=== PATIENT | male | born 1960 | race Caucasian/White ===

== ENCOUNTER 2016-05-09 07:44 | Inpatient (IN) | payer SELFPAY ==
[2016-05-09] VITALS (54 sets, daily range): BP systolic 78–117; BP diastolic 48–88; BMI 21.2
[~2016-05-09] VITALS: Ht 170.2 cm; Wt 70.9 kg
--- NOTE | ~2016-05-09 | HEMODYNAMI ---
PATIENT:DELMA HODGSON MEDICAL RECORD: [id number] : 60 LOCATION:[facility] ADMISSION DATE: 05/09/16 Generatedon:05/09/201610:18 Patient name: DELMA HODGSON Patient #: [id number] SSN: D OB: 1960 Date of study: 05/09/2016 Page: Of Hemodynamic Procedure Report Patient Data Patient Demographics Procedure consent was obtained First Name: DELMA Gender: Male Last Name: REMA : 1960 Middle Initial: S Age: 56 year(s) Patient #: [id number] Race: Additional ID: [id number] Contact details [address]: [address] [place] [address] State: [place] City: [place] Zip code: [address] Past Medical History Allergies: No known allergies Admission Admission Data Admission Date: 05/09/2016 Admission Time: 7:44 Insurance Payor: Private health insurance Weight (lbs.): 135 Weight (kg.): 61.23 Medications upon Admission Medications Dosage Times Administered Last Remarks per Delivery Day Date and Time Aspirin Yes 05/09/2016 (any) 0:00 Lab Results Lab Result Date: 05/09/2016 Lab Result Time: 8:00 Biochemistry Name Units Result Min Max BUN mg/dl 7 --(*---)-- 7 18 Creatinine mg/dl 0.9 --(-*--)-- 0.6 1.3 CBC Name Units Result Min Max Hematocrit % 34.5 *-(----)-- 42 54 Hemoglobin g/dl 12.1 *-(----)-- 13.5 17.5 Procedure Procedure Types Cath Procedure Diagnostic Procedure Right Heart RHC and LHC w/Coronaries Intra-Aortic Balloon Pump Procedure Description Procedure Date Procedure Date: 05/09/2016 Procedure Start Time: 8:47 Procedure End Time: 9:48 Procedure Staff Name Function Liana Delgado RT Scrub Donovan June RN Patroller Louise Kwong RN Nurse Klever Soliman MD Performing Physician Zion Marcos RT Monitor Procedure Data Cath Procedure Contrast Material Contrast Material Type Amount (ml) Isovue 300 137 Entry Location Entry Primary Successful Side Size Upsize Upsize Entry Closure Succes sful Closure Location (Fr) 1 (Fr) 2 (Fr) Remarks Device Remarks Femoral Right 6 Fr 7 Fr artery Short Short Femoral Right 7 Fr vein Short Estimated blood loss: 10 ml Diagnostic catheters Device Type Used For End Catheter Placement Cordis 5Fr Pigtail Procedure Catheter (MP) Cordis 5Fr JL 4.0 Ventriculography Catheter (MP) Cordis 5Fr 3DRC Catheter Procedure (MP) Lalaciences 7Fr Procedure [place] Thermodilution jd Procedure Complications No complications Procedure Medications Medication Administration Route Dosage Oxygen NRB 15 l/min Heparin Bolus I.V. 5000 units Integrilin (Bolus I.V. 5.6 ml 2mg/ml) Dopamine I.V. drip 10 mcg/kg/min (400mg/250ml D5W) 0.9% NaCl I.V. bolus 500 ml Integrilin (Bolus I.C. 5.6 ml 2mg/ml) Fentanyl I.V. 25 mcg Heparin Bolus I.V. 5000 units Heparin Drip I.V. drip 1000 units/hr (09444dbroe/250 D5W) Lidocaine 2% added to field 20 Heparin Flush Bag added to field 2 bags (1000units/500ml NS) Heparin Flush Bag added to field 1 bags (1000units/500ml NS) Plavix P.O. 600 mg Mechanical Ventricular Support IABP: Inserted after PCI has begun Hemodynamics Rest HGB: 12.1 (g/dl) Heart Rate: 63 (bpm) Pressure Samples Time Site Value (mmHg) Purpose Heart Use Rate(bpm) 9:10 PA 66/29(41) Snapshot 92 9:10 RV 51/15,21 Snapshot 83 9:11 RA 22/19(18) Snapshot 83 Snapshots Pre Cath Intra NCS Post Cath Vital Signs Time Heart Resp SPO2 etCO2 [id number] NIBP Rhythm Pain Sedation Rate (ipm) (%) (mmHg) (mmHg) (mmHg) Status Level (bpm) 8:40:55 62 21 97 0 0 69/49(61) NSR 0 (11) 10(A) , No pain 8:44:58 70 20 100 0 0 49/37(47) NSR 0 (11) 10(A) , No pain 8:49:45 68 19 100 0 0 76/39(63) NSR 0 (11) 10(A) , No pain 8:53:45 68 23 100 0 0 72/53(67) NSR 0 (11) 10(A) , No pain 8:57:42 65 20 100 0 0 81/54(64) NSR 0 (11) 10(A) , No pain 9:01:46 74 19 100 0 0 80/52(66) NSR 0 (11) 10(A) , No pain 9:05:48 83 17 100 0 0 83/52(69) NSR 0 (11) 10(A) , No pain 9:09:49 82 19 100 0 0 89/53(66) NSR 0 (11) 10(A) , No pain 9:13:51 84 17 100 0 0 86/60(68) NSR 0 (11) 10(A) , No pain 9:17:53 84 17 100 0 0 87/56(69) NSR 0 () 10(A) , No pain 9:21:54 95 14 100 0 0 84/57(68) NSR 0 (11) 10(A) , No pain 9:25:56 86 16 100 0 0 89/63(75) NSR 0 (11) 10(A) , No pain 9:29:58 91 16 100 0 0 89/62(72) NSR 0 (11) 10(A) , No pain 9:34:57 100 17 100 0 0 Measuring NSR 0 (11) 10(A) , No pain 9:34:59 93 17 100 0 0 82/29(33) NSR 0 (11) 10(A) , No pain 9:39:02 83 16 100 0 0 78/49(71) NSR 0 (11) 10(A) , No pain 9:43:00 83 14 100 0 0 81/53(70) NSR 0 (11) 10(A) , No pain 9:47:47 98 20 100 0 0 71/45(65) NSR 0 (11) 10(A) , No pain 10:10:31 103 13 100 0 0 86/56(68) NSR 0 (11) 10(A) , No pain 10:14:31 105 18 91 0 0 84/71(80) NSR 0 (11) 10(A) , No pain Medications Time Medication Route Dose Verified Delivered Reason No bola Effectiveness by by 8:43:01 Lidocaine 2% added 20ml vial Klever Ernst for local to Jourdan Soliman MD anesthetic field 8:43:13 Heparin Flush added 2 bags Klever Klever used for Bag to Jourdan Soliman MD procedure (1000units/500ml field NS) 8:43:46 Oxygen NRB 15 l/min Klever Buffie used for Jourdan Kwong RN procedure 8:43:56 Heparin Bolus I.V. 5000 units Klever Gil for ve rified Jourdan Kwong RN anticoagulation with dr soliman 8:45:47 Integrilin I.V. 5.6 ml Klever Gil for (Bolus 2mg/ml) Jourdan Kwong RN antiplatelet therapy 8:49:13 Dopamine I.V. 10 Klever Buffie (400mg/250ml drip mcg/kg/min Jourdan Kwong RN D5W) 8:57:01 0.9% NaCl I.V. 500 ml Klever Gil Per physician bolus Jourdan Kwong RN 8:59:22 Integrilin I.C. 5.6 ml Klever Ernst for (Bolus 2mg/ml) Jourdan Soliman MD antiplatelet therapy 9:05:00 Fentanyl I.V. 25 mcg Klever Rodriguezie for sedation Jourdan Kwong RN 9:14:36 Heparin Bolus I.V. 5000 units Klever Rodriguezie for ve rified Jourdan Kwong RN anticoagulation second bolus with dr soliman 9:17:15 Heparin Drip I.V. 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 600 mg Klever Gil for Jourdan Kwong RN antiplatelet therapy Procedure Log Time Note 8:27:27 Diagnostic Cath Status : Emergency 8:27:48 Donovan June RN sent for patient. Start room use. 8:27:50 Time tracking: Regular hours 8:27:53 Plan of Care:Hemodynamics will remain stable., Cardiac rhythm will remain stable., Comfort level will be maintained., Respiratory function will remain adequate., Patient/ family verbilizes understanding of procedure., Procedure tolerated without complication., Recovers from procedure without complications.. 8:35:18 Patient received from ED to CCL 2 Alert and oriented. Tansferred to table in Supine position. 8:38:16 Warm blankets applied, and agatha hugger turned on for patient comfort. 8:38:21 Correct patient and procedure confirmed by team. 8:38:23 Signed procedure consent form obtained from patient. 8:38:25 ECG and BP/O2 sat monitors applied to patient. 8:39:46 Vital chart was started 8:41:26 Baseline sample Acquired. 8:41:30 Rhythm: sinus rhythm 8:41:38 H&P Date Dictated: 05/09/2016 Within 30 days and on chart.. 8:41:39 Pre-op teaching completed and patient verbalized understanding. 8:41:39 Pre-procedure instructions explained to patient. 8:41:41 Family in waiting room. 8:41:45 Patient NPO since Midnight. 8:42:02 Patient allergic to No known allergies 8:42:04 Is the patient allergic to Iodine/contrast media? No. 8:42:47 Is patient on blood thinner?No 8:42:50 Patient diabetic? No. 8:43:01 Lidocaine 2% 20ml vial added to field was given by Klever Soliman MD; for local anesthetic; 8:43:01 Previous problem with sedation/anesthesia? No ? 8:43:02 Snore? Yes 8:43:03 Deviated septum? No 8:43:03 Sleep apnea? No 8:43:04 Opens mouth fully? Yes 8:43:05 Sticks out tongue? Yes 8:43:07 Airway obstruction? No ? 8:43:08 Dentures? No ? 8:43:12 Pre procedure: right dorsailis pedis pulse 1+ Palpable, but thready & weak; easily obliterated 8:43:13 Heparin Flush Bag (1000units/500ml NS) 2 bags added to field was given by Klever Soliman MD; used for procedure; 8:43:14 Pre procedure: left dorsailis pedis pulse 1+ Palpable, but thready & weak; easily obliterated 8:43:46 Oxygen 15 l/min NRB was given by Louise Kwong RN; used for procedure; 8:43:56 Heparin Bolus 5000 units I.V. was given by Louise Kwong RN; for anticoagulation; verified with dr soliman 8:44:05 Patient pain scale 10/10 ?. 8:44:19 IV started by Donovan June RN inleft antecubital with a 18 gauge IV catheter with 0.9% NaCl at KVO. 8:45:09 Lab results completed and on chart. 8:45:15 Bilateral groins area was prepped with chlora-prep and draped in sterile fashion 8:45:16 Sharps counted by scrub and verified by R.N. 8:45:16 Alarms reviewed by R. NHeaven 8:45:17 --------ALL STOP TIME OUT------ 8:45:19 Final Timeout: patient, procedure, and site verified with staff and physician. All members of the team are in agreement. 8:45:20 Bilateral groins site verified by team. 8:45:25 Physical assessment completed. ASA score P 2 - A patient with mild systemic disease as per Klever Soliman MD. 8:45:31 Sedation plan: Local Anesthetic Lidocaine 8:45:36 Use device set Femoral Dx 8:45:40 Acist Hand Control opened to sterile field. 8:45:40 Acist Manifold opened to sterile field. 8:45:41 Acist Syringe opened to sterile field. 8:45:42 Cardinal Cath Pack opened to sterile field. 8:45:42 Bag Decanter opened to sterile field. 8:45:43 St Zaki 260cm J .035 wire opened to sterile field. 8:45:45 Tegaderm 4 x 4 opened to sterile field. 8:45:47 Integrilin (Bolus 2mg/ml) 5.6 ml I.V. was given by Louise Kwong RN; for antiplatelet therapy; 8:45:51 Junior Whisper J 300cm 0.014 guide wire opened to sterile field. 8:45:51 Terumo 6Fr [place] Sheath opened to sterile field. 8:47:19 Procedure started. 8:47:20 Full Disclosure recording started 8:47:51 Local anesthetic to right femoral artery with Lidocaine 2% by Klever Soliman MD.INITIAL ACCESS ONLY 8:47:59 A 6 Fr Short sheath was inserted into the Right Femoral artery 8:48:31 Cordis Infinity 5Fr Multipack catheter opened to sterile field. 8:48:38 A Cordis 5Fr Pigtail Catheter (MP) was advanced over the wire and used for Procedure. 8:49:13 Dopamine (400mg/250ml D5W) 10 mcg/kg/min I.V. drip was given by Louise Kwong RN; ; 8:49:24 LV gram done using HIGHTOWER 8:49:31 Injector settings: Ml/sec: 10, Volume: 20, 8:49:33 Zero performed for pressure channel P1 8:50:21 EF : 20 % 8:50:32 Catheter removed. 8:50:39 A Cordis 5Fr JL 4.0 Catheter (MP) was advanced over the wire and used for Ventriculography. 8:50:50 LCA angiography performed. 8:52:08 Catheter removed. 8:52:12 A Cordis 5Fr 3DRC Catheter (MP) was advanced over the wire and used for Procedure. 8:52:45 RCA angiography performed. 8:53:44 Catheter removed. 8:54:17 Terumo 7Fr [place] Sheath opened to sterile field. 8:56:20 Cordis 6FR XBLAD 4.0 guide catheter opened to sterile field. 8:56:35 6 Fr xblad 4 guide catheter was inserted over the wire 8:56:40 Guide Catheter removed. unable to cannulate vessel. 8:56:49 Cordis 6FR XBLAD 3.5 guide catheter opened to sterile field. 8:56:58 6 Fr xblad 3.5 guide catheter was inserted over the wire 8:57:01 0.9% NaCl 500 ml I.V. bolus was given by Louise Kwong RN; Per physician; 8:58:48 whisper wire advanced. 8:58:49 Wire advanced across lesion. 8:59:22 Integrilin (Bolus 2mg/ml) 5.6 ml I.C. was given by Klever Soliman MD; for antiplatelet therapy; 8:59:28 Inflation number: 1 A Payfirma Esmeralda 3.5 X 15 balloon was prepped and advanced across the Prox CX, then inflated to 7 CHRISTINE for 0:21 (min:sec). 9:00:32 Balloon removed over the wire. 9:00:50 Wire redirected to OM. 9:02:44 Wire advanced across lesion. 9:02:54 Inflation Number: 1 A Medtronic Integrity 3.0 X 12 stent was prepped and advanced across the 1st Ob Jamee. The stent was deployed at 17 CHRISTINE for 0:10 (min:sec). 9:03:02 Stent catheter was removed intact over wire. 9:04:47 Inflation Number: 2 A Medtronic Integrity 4.0 X 9 stent was prepped and advanced across the Prox CX. The stent was deployed at 13 CHRISTINE for 0:10 (min:sec). 9:05:00 Fentanyl 25 mcg I.V. was given by Louise Kwong RN; for sedation; 9::44 Stent catheter was removed intact over wire. 9:05:45 Wire removed. 9:05:47 Guide catheter removed. 9:06:23 Procedure type changed to Cath procedure, Diagnostic procedure, Right Heart, RHC and LHC w/Coronaries, Intra-Aortic Balloon Pump 9:07:01 A 7 Fr Short sheath was inserted into the Right Femoral vein 9:07:24 A oneforty 7Fr [place] Thermodilution jd was advanced over the wire and used for Procedure. 9:09:02 St Zaki 150cm J .025 wire opened to sterile field. 9:09:37 .025 wire advanced 9:11:30 [place]-Gagan removed. 9:13:40 Sheath upsized to a 7 Fr Short. 9:14:36 Heparin Bolus 5000 units I.V. was given by Louise Kwong RN; for anticoagulation; verified second bolus with dr soliman 9:17:15 Heparin Drip (07847bhfgu/250 D5W) 1000 units/hr I.V. drip was given by Louise Kwong RN; for anticoagulation; verified with dr soliman 9:24:55 Datascope IABP 34cm balloon catheter opened to sterile field. 9:25:42 34cc IABP inserted into the RFA . 9::44 Augmentation: 1:1 per physician. 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 9:33:49 Plavix 600 mg P.O. was given by Louise Kwong RN; for antiplatelet therapy; 9:34:30 Augmenter BP: 98 9:36:07 venous and arterial sheath sutured in place. 9:36:13 Procedure ended.(Physican Out) 9:37:03 Contrast amount:Isovue 300 137ml. 9:37:05 Sharps counted by scrub and verified by R.N. 9:37:42 2.0 Silk 685H opened to sterile field. 9:37:52 venous sheath was sutured in with 2.0 silk. 9:38:08 arterial sheath was sutured in with 2.0 silk. 9:38:11 Insertion/operative site no bleeding no hematoma. 9:38:26 Post-op/insertion site Right Femoral artery dressed using a 4 x 4 and Tegaderm. 9:38:35 Post right femoral artery:stable, clean and dry 9:38:37 Post Procedure Pulses reassessed and unchanged 9:38:40 Post-procedure physical assessment completed. ASA score P 2 - A patient with mild systemic disease as per Klever Soliman MD. 9:38:47 Post procedure rhythm: unchanged. 9:38:50 Estimated blood loss: 10 ml 9:38:51 Post procedure instruction explained to patient.Patient verbalizes understanding. 9:38:53 Patient needs reinforcement of post procedure teaching. 9:41:24 Procedure and supply charges have been captured, reviewed, submitted and are correct. 9:41:28 Procedure Complication : No complications 9:43:22 Patient Weight : 135 kg 9:43:24 Insurance Payor : Private health insurance 9:43:53 IABP : Inserted after PCI has begun 9:46:25 Lab Result : Hemoglobin 12.1 g/dl 9:46:25 Lab Result : Hematocrit 34.5 % 9:46:25 Lab Result : BUN 7 mg/dl 9:46:25 Lab Result : Creatinine 0.9 mg/dl 9:46:35 PCI Cath Status : Emergency 9:48:01 Vital chart was stopped 9:48:02 See physician's report for complete and final results. 9:48:10 Report given to ICU. 9:48:13 Patient transfered to ICU with Stretcher. 9:48:15 Full Disclosure recording stopped 9:48:15 Procedure ended. 9:48:47 End room use (Document Last) 10:09:25 Vital chart was started 10:18:16 Vital chart was stopped Intervention Summary Intervention Notes Time ActionType Lesion and Equipment Action# Pressure Duration Attributes Used 8:59:28 Inflate Prox CX [place] 1 7 00:21 balloon Sci Esmeralda 3.5 X 15 balloon 9:02:54 Place stent 1st Ob Jamee Medtronic 1 17 00:10 Integrity 3.0 X 12 stent 9:04:47 Place stent Prox CX Medtronic 2 13 00:10 Integrity 4.0 X 9 stent Device Usage Item Name Manufacture Quantity Catalog Number Hospital Part Current Minimal Lot# / Charge Number Stock Stock Serial# Code Acist Manifold Acist 1 08979 154951 959401 773682 5 [employer] THINK360 Acist Hand Acist 1 73759 385028 116509 132422 5 Control Medical Systems THINK360 Acist Syringe Acist 1 13267 191575 910438 764892 20 Medical Systems THINK360 Bag Decanter Microtek 1 2002S 310388 18783 420040 5 Medical Inc. Cardinal Cath Cardinal [address] 572550 53429 605[address] Zaki 260[address] St Zaki 1 452553 293522 493936 510011 30 J .035 wire Tegaderm 4 x 4 3M 1 1626W 209026 412047 551285 5 Terumo 6Fr Terumo 1 KYP226 722854 255703 592983 40 [place] Sheath Cordis Cardinal 1 IP8886 517792 74464 253553 30 Infinity 5Fr Health Multipack catheter Cordis 5Fr Cardinal 1 538923 5 Pigtail Health Catheter (MP) Cordis 5Fr JL Cardinal 1 162038 5 4.0 Catheter Health (MP) Cordis 5Fr Cardinal 1 419505 5 3DRC Catheter Health (MP) Terumo 7Fr Terumo 1 BEQ740 921496 261408 688133 5 [place] Sheath Cordis 6FR Cardinal 1 61023342 219149 628671 362427 3 XBLAD 4.0 Health guide catheter Cordis 6FR Cardinal 1 [id number] 199182 672544 534174 10 XBLAD 3.5 Health guide catheter [place] Sci St[place]ford 1 [id number] 338450 940163 208239 1 [id number] Esmeralda 3.5 X Scientific 15 balloon Medtronic Medtronic 1 [id number] 357894 642535 646487 1 [id number] Integrity 3.0 X 12 stent Medtronic Medtronic 1 [id number] 447263 212875 7988963 2 [id number] Integrity 4.0 X 9 stent Han [place] 1 [id number] 285867 00719 224228 3 Lifesciences Lifesciences 7Fr [place] Thermodilution jd St Zaki [address] St Zaki 1 112195 330287 625103 397049 2 J .025 wire Datascope IABP Datascope 1 7478-81-7497-01 951878 967157 715905 1 34cm balloon catheter High Pressure Merit 1 [id number] 602458 34986 153023 10 Extension Medical Tubing (Molina) 2.0 Silk 685H Ethicon 1 685H 937215 219505 5 Junior Whisper Junior 1 [id number] 833703 401602 897686 5 J 300cm 0.014 Vascular guide wire Signature Audit [place] Stage Time Signature Unsigned Intra-Procedure 05/09/2016 Zion Gaines Counts 9:49:40 AM RT(R) RT(R) 05/09/2016 10:09:20 AM Intra-Procedure 05/09/2016 Liana 10:18:28 AM Counts RT(R) Signatures Monitor : Zion Marcos RT Signature : Date : Time : [facility] [address] [place] [address]
[~2016-05-09 07:44] MED LIST: ASPIRIN325 MG PO; EFFIENT10 MG PO; MULTIPLE VITAMI1 TA1 PO; POTASSIUM99 M1 PO
[2016-05-09 08:15] LABS: BASOPHILS 1.1 % (0.0-2.0); EOSINOPHILS 0.3 % (0-7); HEMATOCRIT 34.5 % (42.0-54.0); HEMOGLOBIN 12.1 g/dL (13.5-17.5); IMMATURE GRANULOCYTES 1.5 % (0-5); LYMPHOCYTES 27.4 % (15-50); MCH 33.9 pg (26.0-34.0); MCHC 35.1 g/dL (31.0-37.0); MCV 96.6 fL (80.0-100.0); MONOCYTES 13.2 % (2-11); NEUTROPHILS 56.5 % (40-80); RBC 3.57 10x6/uL (4.20-6.10); RDW 15.6 % (11.5-14.5); WBC 7.4 10x3/uL (4.8-10.8)
[2016-05-09 08:16] LABS: PLATELET COUNT 122 10x3/uL (130-400)
[2016-05-09 08:28] LABS: ALBUMIN 3.4 g/dL (3.4-5.0); ALKALINE PHOSPHATASE 102 U/L (46-116); ALT (SGPT) 85 U/L (10-68); BILIRUBIN - TOTAL 1.09 mg/dL (0.2-1.3); CALC OSMOLALITY 278 mosm/kg (275-300); CALCIUM 8.3 mg/dL (8.5-10.1); CARBON DIOXIDE 23.9 mmol/L (21.0-32.0); CHLORIDE - SERUM 98 mmol/L (98-107); CREATININE - SERUM 0.9 mg/dL (0.6-1.3); GLUCOSE 130 mg/dL (74-106); PROTEIN - SERUM 8.3 g/dL (6.4-8.2); SODIUM 140 mmol/L (136-145); UREA NITROGEN 7 mg/dL (7-18); eGFR NON AFRICAN AMERICAN > 90 mL/min (90-120)
[2016-05-09 08:41] LABS: INR 1.12 (0.85-1.17); PROTIME 14.3 SECONDS (11.6-15.0)
[2016-05-09 08:42] LABS: APTT 36.1 SECONDS (22.8-39.4)
[2016-05-09 08:44] LABS: CHOL - HDL RATIO 1.4 ratio (2.3-4.9); CHOLESTEROL, TOTAL 160 mg/dL (0-200); CKMB 13.3 U/L (0.0-3.6); CREATINE KINASE 198 UL (21-232); HDL CHOLESTEROL 111 mg/dL (32-96); LDL CHOLESTEROL 35 mg/dL (0-100); LDL-HDL RATIO 0.3 ratio (1.5-3.5); TRIGLYCERIDE 72 mg/dL (30-200)
[2016-05-09 08:46] LABS: TROPONIN-I 1.011 ng/mL (0.000-0.060)
--- NOTE | 2016-05-09 10:25 | NUR ---
PT ARRIVED FROM DENTIST ON BED WITH DENTIST TEAM. IABP TO RIGHT GROIN ON 1:1. PT ON DOPAMINE GTT AT 10MCG/KG/MIN, HEPARIN AT 1000 UNITS/HR, AND NS AT 100CC/H. ORIENTED TO ROOM. CALL LIGHT WITHIN REACH.
--- NOTE | 2016-05-09 10:58 | NUR ---
PT VOMITING OVER SIDE OF BED RAIL. PT REPORTS THAT HE DRINKS APPROX 1/5TH OF VODKA DAILY. REPORTS THAT HE WAS DRINKING LAST NIGHT.
--- NOTE | 2016-05-09 13:30 | NUR ---
PT RESTLESS. REPOSITIONED IN BED FOR COMFORT. INSTRUCTED TO KEEP RIGHT LEG STRAIGHT. VOICES UNDERSTANDING AT THIS TIME.
--- NOTE | 2016-05-09 15:30 | NUR ---
PT KEEPS BENDING LEFT ARM AND IV PUMPS ALARMING OCCLUDED. SALINE LOCKED LEFT AC PIV AND STARTED 20G PIV X1 STICK TO LEFT FA. PT TOLERATED WELL. BANANA BAG AND HEPARIN SWITCHED TO THIS SITE.
--- NOTE | 2016-05-09 17:50 | NUR ---
PT OOZING BLOOD FROM TABARES CATH INSERTION SITE AND RIGHT GROIN IABP INSERTION SITE. PT CLEANED AND PLACED ON CLEAN PAD. HAD APPROX 50CC OF BLOOD NOTED. WILL CONTINUE TO MONITOR.
--- NOTE | 2016-05-09 18:27 | NUR ---
ABLE TO CONTACT PT'S DAUGHTER MESFIN ERWIN # [phone]. SHE LIVES IN [place]. UPDATED HER ON PT'S STATUS. SHE WAS ABLE TO SPEAK WITH HER FATHER OVER THE TELEPHONE.
--- NOTE | 2016-05-09 19:20 | NUR ---
REPORT REC'D AND CARE ASSUMED, REC'D PT RESTING EYES CLOSED ON 9LITER OXYMIZER, AWAKENS TO VERBAL STIMULI, ORIENTED X 3, RIGHT A/C PIV WITH DOPAMINE @ 5MCG/KG/MIN OR 11.4CC/HR LEFT A/C PIV SALINE LOCKED, LEFT FOREARM PIV WITH A BANANA BAG INFUSING @ 100CC/HR AND HEPARIN @ 700 UNITS/HR BOTH VIA MANNIFOLD, RIGHT GROIN IABP 1:1 EKG TRIGGER, SANGUINOUS DRAINAGE NOTED UNDERNEATH DRSG AT GROIN AND LOWER THIGH, DOES APPEAR TO BE EXTENDING, PT REMINDED TO KEEP RIGHT LEG STRAIGHT AND FLAT, PT VERBALIZES UNDERSTANDING, NO HEMATOMA NOTED AT THIS TIME, TABARES PATENT DRAINING CONCENTRATED URINE, BLOODY DRAINAGE NOTED AROUND MEATUS, SR UP X 2, 1:[address]
--- NOTE | 2016-05-09 19:40 | NUR ---
PT WANTING TO GET UP TO USE THE BATHROOM, STATES " I NEED TO DO NUMBER 2", PT PLACED ON BEDPAN, CALL LIGHT IN REACH.
--- NOTE | 2016-05-09 19:55 | NUR ---
PT REMOVED FROM BEDPAN, LIQUID BROWN STOOL NOTED, PARTIAL BATH AND LINEN CHANGE GIVEN, PT REPOSITIONED UP IN BED, PT REMINDED TO KEEP RIGHT LEG STRAIGHT, SIPS OF WATER PROVIDED ON REQUEST, PT DENIES FURTHER NEEDS.
--- NOTE | 2016-05-09 20:50 | NUR ---
PT COMPLAINS OF LEFT HIP PAIN, EVENING MEDS GIVEN AND MORPHINE 2MG GIVEN SLOW IVP FOR PAIN.
--- NOTE | 2016-05-09 22:15 | NUR ---
PT'S ROOMATE AT WAITING ROOM DOOR TO DROP OFF PT'S CELL PHONE, LYUBOV [employer] CELL PHONE REC'D AND PLACED WITH PT'S BELONGINGS
--- NOTE | 2016-05-09 23:05 | NUR ---
REASSESSMENT COMPLETED, IABP CONTINUES, DRSG TO RIGHT GROIN WITH NO FURTHER BLEEDING NOTED, ATTEMPTING TO WEAN DOPAMINE, SIPS OF WATER GIVEN.
[2016-05-10] VITALS (95 sets, daily range): BP systolic 73–125; BP diastolic 38–91; Ht 170.2 cm; Wt 70.9 kg
--- NOTE | 2016-05-10 01:05 | NUR ---
LAB AT FOR TIMED PTT DRAW, PT REQUESTING ANXIETY MEDICATION, VSS.
--- NOTE | 2016-05-10 01:30 | NUR ---
2MG ATIVAN GIVEN SLOW IVP FOR ANXIETY, PT REPOSITIONED ONTO LEFT SIDE SUPPORTED WITH PILLOW, WILL MONITOR CLOSELY FOR CHANGES.
--- NOTE | 2016-05-10 03:00 | NUR ---
PT RESTING EYES CLOSED, RESP EVEN AND UNLABORED, VSS.
--- NOTE | 2016-05-10 04:00 | NUR ---
LAB AT FOR AM LAB DRAW
[2016-05-10 05:22] LABS: BASOPHILS 0.2 % (0.0-2.0); EOSINOPHILS 0.5 % (0-7); IMMATURE GRANULOCYTES 0.9 % (0-5); LYMPHOCYTES 14.5 % (15-50); MCH 33.1 pg (26.0-34.0); MCHC 34.5 g/dL (31.0-37.0); MONOCYTES 13.3 % (2-11); NEUTROPHILS 70.6 % (40-80); PLATELET COUNT 95 10x3/uL (130-400); RBC 3.02 10x6/uL (4.20-6.10); RDW 15.4 % (11.5-14.5); WBC 5.9 10x3/uL (4.8-10.8)
[2016-05-10 05:42] LABS: ALBUMIN 2.7 g/dL (3.4-5.0); ALKALINE PHOSPHATASE 78 U/L (46-116); ALT (SGPT) 71 U/L (10-68); BILIRUBIN - TOTAL 1.47 mg/dL (0.2-1.3); CALCIUM 7.2 mg/dL (8.5-10.1); CARBON DIOXIDE 23.6 mmol/L (21.0-32.0); CHLORIDE - SERUM 101 mmol/L (98-107); GLUCOSE 88 mg/dL (74-106); MAGNESIUM - SERUM 1.2 mg/dL (1.8-2.4); PHOSPHOROUS 2.8 mg/dL (2.5-4.9); POTASSIUM - SERUM 3.4 mmol/L (3.5-5.1); SODIUM 139 mmol/L (136-145)
--- NOTE | 2016-05-10 05:45 | NUR ---
COMPLETE BATH AND LINEN CHANGE GIVEN, PT PROVIDED SUPPLIES TO BRUSH TEETH, PT ABLE TO DO ORAL CARE INDEPENDENTLY, REPOSITIONED UP IN BED FOR COMFORT, VSS.
[2016-05-10 05:55] LABS: CALC OSMOLALITY 275 mosm/kg (275-300); CREATININE - SERUM 0.6 mg/dL (0.6-1.3); UREA NITROGEN 9 mg/dL (7-18); eGFR NON AFRICAN AMERICAN > 90 mL/min (90-120)
[2016-05-10 06:09] LABS: PLATELET ESTIMATE DECREASED
--- NOTE | 2016-05-10 06:15 | NUR ---
PT AGITATED PULLING AT TELEMETRY, STATES " I NEED TO GET OUT OF HERE", EXPLAINED TO PT WHY HE MUST STAY, PT SOMEWHAT CALMER, SHAKING NOTED TO BILATERAL UPPER EXT'S, 2MG ATIVAN GIVEN SLOW IVP AT THIS TIME.
--- NOTE | 2016-05-10 08:40 | NUR ---
DR. AVALOS AT BEDSIDE. IABP CHANGED TO 1:2. PT TOLERATING WELL.
--- NOTE | 2016-05-10 09:20 | NUR ---
PT ON IABP 1:3 NOW.
--- NOTE | 2016-05-10 10:17 | NUR ---
PT VERY AGGITATED AND TREMAYNE AT LINES. WILL GIVE ATIVAN ORDERED. HR INC TO 144 SINUS TACH, RESP 34, O2 SAT 87%. WILL GET ABGs.
--- NOTE | 2016-05-10 10:55 | NUR ---
PT'S HR INC 153. PT VERY AGGITATED. PAGED DR. AVALOS.
--- NOTE | 2016-05-10 11:38 | NUR ---
GAVE LOPRESSOR IVP PER MD ORDERS. GAVE SLOWLY AND ONLY DOSED 6MG. PT BECAME HYPOTENSIVE. HR DID COME DOWN TO 104 SINUS TACH. WILL RESTART DOPAMINE AT 5MCG/KG/MIN TO KEEP SBP >90.
--- NOTE | 2016-05-10 13:20 | NUR ---
CALLED DR. AVALOS WITH SERUM H&H RESULTS. WANTS TO ONLY GIVE 1 UNIT PRBCs NOW. NOTIFIED BLOOD BANK. UNABLE TO EDIT ORDER, BUT MERARI REPORTS THAT SHE WILL UPDATE AND EDIT ORDER.
[2016-05-10 13:29] LABS: HEMATOCRIT 28.6 % (42.0-54.0); HEMOGLOBIN 9.7 g/dL (13.5-17.5)
[2016-05-10 14:24] LABS: CALCIUM 7.5 mg/dL (8.5-10.1); CARBON DIOXIDE 27.5 mmol/L (21.0-32.0); CHLORIDE - SERUM 100 mmol/L (98-107); SODIUM 138 mmol/L (136-145); UREA NITROGEN 11 mg/dL (7-18)
[2016-05-10 14:26] LABS: CALC OSMOLALITY 281 mosm/kg (275-300); CREATININE - SERUM 0.8 mg/dL (0.6-1.3); GLUCOSE 219 mg/dL (74-106); eGFR NON AFRICAN AMERICAN > 90 mL/min (90-120)
[2016-05-10 14:27] LABS: POTASSIUM - SERUM 4.1 mmol/L (3.5-5.1)
--- NOTE | 2016-05-10 14:41 | NUR ---
PT VERY RESTLESS AND PULLING AT LINES. GAVE ATIVAN ORDERED.
--- NOTE | 2016-05-10 15:25 | NUR ---
PT VERY RESTLESS. AGGITATED. SHORT OF BREATH. RESP 36-42. BREATH SOUNDS WITH AUDIBLE WHEEZING WHEN STANDING AT SIDE OF BED. DIONTE WITH RESP THERAPY AT BEDSIDE FOR ABGs.
--- NOTE | 2016-05-10 15:35 | NUR ---
DISCUSSED ABG RESULT WITH DR. AVALOS AND DR. RAMIREZ. BOTH REPORT THAT THEY ARE ON THERE WAY TO UNIT NOW. PT VERY RESTLESS AND AGGITATED. CYANOTIC IN FACE. DIPHORETIC AND PALE.
--- NOTE | 2016-05-10 15:50 | NUR ---
DR. AVALOS AND DR. RAMIREZ AT BEDSIDE. VERSED 5MG IV GIVEN. PT INTUBATED WITH 8.0. 22 CM AT THE LIP. ETT SECURED. OGT PLACED AND VERIFIED WITH AIR BOLUS. PLACED TO LIS. DR. AVALOS PLACED IABP BACK TO 1:1.
--- NOTE | 2016-05-10 17:15 | NUR ---
PT HAD COMPLETE BATH AND LINEN CHANGE. TABARES CARE GIVEN. PT TOLERATED WELL.
--- NOTE | 2016-05-10 17:28 | NUR ---
DR. AVALOS TO PUT IV LABETALOL ON HOLD SINCE PT IS SEDATED AND HR IS NOW AT 102. BP 90/70
--- NOTE | 2016-05-10 19:00 | NUR ---
1900: Caller requested patient information. No password. 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 Jamey verbalized understanding. Explained that I would provide contact info to Maria Esther pts daughter. Caller states he does not have Maria Esther's number. Did not provide that number, but again explained to caller that his contact info would be given to NOK. Verbalized understanding.
--- NOTE | 2016-05-10 20:00 | NUR ---
1999: Pt remains sedated on vent with RR 20X with SPO2 96%. Pt remains sedated with Diprivan gtt as per orders. Pt remains ST 105-120 bpm with SBP 110's at this time. No change in IVF/UOP. Dopamine remains at 10 mcg/kg/min. Right groin sheath remains intact with no s/s of swelling or oozing at this time, but visible dried blood seen at dressing. Mannifold connected to right venous sheath for IV access. Bilateral pedal pulses obtained via doppler. Both extrem cool to touch. Blevins remains to gravity with >30 cc/hr dark yellow UOP. All monitors remain intact and all alarms on.
--- NOTE | 2016-05-10 22:00 | NUR ---
2200: Pt HR and RR increased with turning. Pt HR 120's and RR 24-30x. Oral care done as well and sx completed with minimal clear sx returned. Pt returns to ST 105-110 and RR20 with withdrawl of stimulation.
--- NOTE | 2016-05-10 23:45 | NUR ---
2345: Pt SPO2 98% decreased FIO2 to 80% at this time.
[2016-05-11] VITALS (94 sets, daily range): BP systolic 81–124; BP diastolic 63–91
--- NOTE | 2016-05-11 00:30 | NUR ---
0030: Pt remains on vent with RR23x with SPO2 98%. No change in IVF/UOP at this time. Pt has increased HR and RR with minimal stimulation. Pt BP decreased with above. Pt remains on IABP with no changes in setting. Right groin as previously documented.
[2016-05-11 00:55] LABS: INR 1.17 (0.85-1.17); PROTIME 14.8 SECONDS (11.6-15.0)
[2016-05-11 00:57] LABS: APTT 101.3 SECONDS (22.8-39.4)
--- NOTE | 2016-05-11 02:00 | NUR ---
0200: Lab returned. Heparin decreased to 500 units/hr.
--- NOTE | 2016-05-11 04:25 | NUR ---
0425: Pt remains on Vent with MG32-32s increased respirations seen with stimulation. Pt has increased HR 120's with minimal stimulation as well. Pt remains on IABP without change. No change in IVF/UOP at this time. Right groin sheath unchanged. No s/s of bleeding, oozing, or swelling noted. Bilateral lower extrem distal pulses obtainable via doppler. Oral care done and pt repositioned with HOB 20 degrees at this time.
[2016-05-11 05:25] LABS: BASOPHILS 0 % (0.0-2.0); EOSINOPHILS 0 % (0-7); HEMATOCRIT 31.1 % (42.0-54.0); HEMOGLOBIN 10.5 g/dL (13.5-17.5); IMMATURE GRANULOCYTES 0.5 % (0-5); LYMPHOCYTES 5.4 % (15-50); MCH 32.1 pg (26.0-34.0); MCHC 33.8 g/dL (31.0-37.0); MCV 95.1 fL (80.0-100.0); MEAN PLATELET VOLUME 9.9 fL (7.4-10.4); MONOCYTES 7.5 % (2-11); NEUTROPHILS 86.6 % (40-80); PLATELET COUNT 77 10x3/uL (130-400); RBC 3.27 10x6/uL (4.20-6.10); RDW 17.7 % (11.5-14.5); WBC 5.7 10x3/uL (4.8-10.8)
[2016-05-11 05:51] LABS: INR 1.14 (0.85-1.17); PROTIME 14.4 SECONDS (11.6-15.0)
[2016-05-11 05:52] LABS: ALBUMIN 2.5 g/dL (3.4-5.0); ALKALINE PHOSPHATASE 65 U/L (46-116); ALT (SGPT) 55 U/L (10-68); CALCIUM 7.2 mg/dL (8.5-10.1); CARBON DIOXIDE 27.5 mmol/L (21.0-32.0); CHLORIDE - SERUM 99 mmol/L (98-107); CREATININE - SERUM 0.6 mg/dL (0.6-1.3); D-DIMER-QUANTITATIVE 0.84 ug/mLFEU (0.20-0.54); GLUCOSE 225 mg/dL (74-106); LDH 291 U/L (85-227); PHOSPHOROUS 2.3 mg/dL (2.5-4.9); POTASSIUM - SERUM 3.7 mmol/L (3.5-5.1); PRO BNP 7117 pg/mL (0-125); PROTEIN - SERUM 6.8 g/dL (6.4-8.2); SODIUM 135 mmol/L (136-145); eGFR NON AFRICAN AMERICAN > 90 mL/min (90-120)
[2016-05-11 05:54] LABS: CALC OSMOLALITY 274 mosm/kg (275-300); UREA NITROGEN 7 mg/dL (7-18)
[2016-05-11 05:56] LABS: APTT 70.5 SECONDS (22.8-39.4)
[2016-05-11 06:14] LABS: PLATELET ESTIMATE DECREASED; PLATELET MORPHOLOGY NORMAL PLT MORPH
--- NOTE | 2016-05-11 08:11 | NUR ---
0715-RECIEVED PER FLOW SHEET-NOTED ST 132 ON MONITOR-NIBP 96-DIPRIVAN INCREASED TO 75MCG-POSS DT UNDER SEDATION-DOPAMINE TITRATED DOWN TO 9.8MCG/KG/MIN-GOAL AT THIS TIME TITRATION TO 9.5 [id number] DECREASED TO 70-90 SR -NIBP INCREASED TO 117/79-ATROPINE ON STANDBY IN RM AND SCANNED-KBRN
--- NOTE | 2016-05-11 08:34 | NUR ---
DR MONTOYA AT BEDSIDE-STATUS REVIEWED-VENT CHANGE BY DR RAMIREZ-VENT CHANGE TO 70% AND BICARB GTT D/C'D
--- NOTE | 2016-05-11 08:47 | NUR ---
NOTED NIBP 120/79-AUGMENTED 116-GOAL DOPAMINE TO 9MCG-TITRATED TO 9.2-HR 100-ST
--- NOTE | 2016-05-11 09:09 | NUR ---
NIBP-107/31-[id number]-584-HR 86-DOP AT 9MCG/KG/MIN
--- NOTE | 2016-05-11 10:04 | NUR ---
VENT CHANGE BY RT TO 60-DOPAMINE LEFT AT 9.0MCG-NIBP 111/62-DCH-467-MORPHINE 2MG IVP GIVEN OVER 10 MIN FOR POSSIBLE PAIN AND INCREASE MYOCARDIAL O2 PERFUSION
--- NOTE | 2016-05-11 11:11 | NUR ---
PATIENT HAS BEEN CONFUSED AND UNABLE TO BE INTERVIEWED SINCE HIS ADMISSION. PATIENT IS NOW ON THE VENT AND SEDATED. I HAVE NOT SEEN ANY FAMILY HER TO INTERVIEW AT THIS TIME. CM TO FOLLOW.
--- NOTE | 2016-05-11 11:43 | NUR ---
ECHO COMPLETED-REPOSITIONED TO SUPINE-GOAL DOPAMINE A 8MCG-TITRATED TO 8.50 NIPB -NOV 119-HR 92
--- NOTE | 2016-05-11 12:29 | NUR ---
DR AVALOS AT [facility]-IABP DECREASED TO 1:3-VERBAL DIRECTION IF GTT IN NIBP AND HR >125-TO RETURN TO 1:1 AND REVALUATE
[2016-05-11 12:30] LABS: INR 1.04 (0.85-1.17); PROTIME 13.5 SECONDS (11.6-15.0)
[2016-05-11 12:35] LABS: APTT 48.7 SECONDS (22.8-39.4)
--- NOTE | 2016-05-11 13:49 | NUR ---
REPOSITIONED TO R SIDE-DOPAMINE AT 8MCG-IABP 1;3-NIBP 97/78 AUGMENTED 123
--- NOTE | 2016-05-11 14:37 | NUR ---
IABP 1;3-NIBP 102/81-AUGMENTED 123-HR 97--GOAL TO TITRATED DOPAMINE TO 7MCG-AT 7.75MCG AND TOLERATING
--- NOTE | 2016-05-11 15:33 | NUR ---
PT TRIGGERING VENT WITH HIGH PEAK PRESSURES-SUCTIONED FOR SMALL AMOUNT -ORAL CARE DONE-HR 142-DIPRIVAN BOLUS 15MG GIVEN TO <ST TO 100
--- NOTE | 2016-05-11 16:40 | OP ---
PATIENT NAME: DELMA HODGSON MEDICAL RECORD: [id number] :60 LOCATION:D.[facility] [place] D.2305 ADMISSION DATE:05/09/16 SURGEON: KWAN AVALOS MD DATE OF OPERATION: 05/09/2016 PROCEDURES: 1. Intraaortic balloon pump placement. 2. Percutaneous transluminal coronary angioplasty stent left circumflex. 3. Percutaneous transluminal coronary angioplasty stent first obtuse marginal. 4. Left heart catheterization. 5. Right heart catheterization. 6. Left ventriculogram. INDICATION: Cardiogenic shock, myocardial infarction, and possible pulmonary embolus. PROCEDURE IN DETAIL: After informed consent was obtained and after a detailed explanation of the risks, benefits, as well as alternative therapies, the patient elected to proceed with angiogram and angioplasty. Right femoral artery and vein were cannulated via modified Seldinger technique with the placement of 6 and 7-Nepali sheath. All catheters exchanged through this sheath. At the end of the case, intraaortic balloon pump was placed in the descending aorta. An intraaortic balloon pump counterpulsation was undertaken. FINDINGS: 1. Left ventriculogram was performed in standard 30-degree HIGHTOWER view, reveals severe global hypokinesis throughout all segments. Overall ejection fraction in the 20% range. 2. Right heart hemodynamics. Pulmonary artery pressure 80/36, right ventricular pressure 54/30, and right atrial pressure mean of 19. SELECTIVE CORONARY ANGIOGRAPHY: 1. Left main showed no significant angiographic disease. 2. Left anterior descending has moderate irregularities. There is an area in the mid vessel, most likely is 50-70%. This does not appear to be critical. 3. Left circumflex ostium appears to have acute thrombus. The first obtuse marginal was 80% to 90% stenosis. PTCA STENT OF THE LEFT CIRCUMFLEX AND FIRST OBTUSE MARGINAL: The circumflex itself was addressed with a 4.0 x 9 Integrity. The obtuse marginal with 3.0 x 12 Integrity. Result was 0% residual throughout. No further evidence of thrombus. No further stenosis. OVERALL IMPRESSION: Successful percutaneous transluminal coronary angioplasty stent of the circumflex and first obtuse marginal; however, with the extremely elevated pulmonary pressures, this as well suggests possible pulmonary embolus, intraaortic balloon pump was placed due to low ejection fraction and continued low blood pressure. Heparin drip was instituted afterwards. We will perform a VQ or CTA in near future for further diagnostic evaluation of pulmonary embolus. TRANSINT:[id number] Voice Confirmation ID: [id number] DOCUMENT ID: [id number] OPERATIVE REPORT [id number] DELMA HODGSON JEFFREY MD at 1640 CC: [id number] DICTATION DATE: 05/09/16922 OPERATIONS RESEARCH GROUP MANAGER: 05/09/16 0953 ADM IN [address] [id number] [place] [address]
--- NOTE | 2016-05-11 16:40 | PN ---
PATIENT:DELMA HODGSON MEDICAL RECORD: [id number] LOCATION:D.[facility] D.230 ADMISSION DATE: 05/09/16 PROGRESS NOTE DATE OF SERVICE: 05/10/2016 Mr. Hodgson presented yesterday with what appeared to be cardiogenic shock. He underwent a PTCA stent of his left circumflex, along with intraaortic balloon pump placement. His ejection fraction was in the 25% to 30% range. He was weaned off the pressors overnight. This morning, he was doing well. We turned the intra-aortic balloon pump down to 1:3. He did well initially with this; however, now his respiratory status has markedly decreased. We put the balloon pump back to 1:1. His blood pressure is holding; however, he had to be put back on the dopamine. At this time, he is in respiratory distress and intubation is underway. This is a poor prognosis from a cardiac standpoint, from a respiratory standpoint half-way. His hemoglobin did drop down to 9.7. We are transfusing with 1 unit of blood for this. He is yet to get the transfusion. Further care depends upon the results with intubation. TRANSINT:[id number] Voice Confirmation ID: [id number] DOCUMENT ID: [id number] KWAN AVALOS MD at 1640 CC: [id number] DICTATION DATE: 05/10/16 1542 MANAGER BUSINESS PLANNING: 05/10/16 1557 ADM IN [facility] [address] [place] [address]
--- NOTE | 2016-05-11 16:40 | HP ---
PATIENT: DELMA HODGSON MEDICAL RECORD: [id number] ACCOUNT: [id number] LOCATION:[facility] D.2305 : 60 ADMISSION DATE: 05/09/16 HISTORY AND PHYSICAL EXAMINATION ADMITTING DIAGNOSES: 1. Acute coronary syndrome. 2. Coronary artery disease. 3. Previous percutaneous transluminal coronary angioplasty stent. 4. Chronic obstructive pulmonary disease. 5. Smoking history. HISTORY OF PRESENT ILLNESS: Mr. Hodgson presents with chest pain. The chest pain actually started last night at 11:00. He became pain free. He went to sleep. He woke up by acute severe chest pain, presented to the Emergency Room with heart rate in the 140s. He was given IV Lopressor and Cardizem. He converted to sinus rhythm. He continues to have 10/10 chest pain. PHYSICAL EXAMINATION: GENERAL APPEARANCE: Well-nourished, well-developed, appears stated age. Level of distress, comfortable. PSYCHIATRIC: Mental status, alert, normal affect. Orientation, oriented to time, place and person. EYES: Lids and conjunctiva, noninjected. No discharge, no pallor. ENT: Lips, teeth, gums, normal dentition. Oropharynx, no cyanosis, no pallor. NECK: Carotid arteries, bilateral normal upstroke, no bruits, no thrills. JUGULAR VEINS: No jugular venous pressure or distention. CERVICAL LYMPH NODES: Nontender, nonenlarged. THYROID: Not enlarged. Nontender. No nodules. LUNGS: Respiratory effort, unlabored. CHEST: Normal curvature. No thoracic deformity. No chest wall tenderness. Percussion, resonant. Auscultation, clear. No wheezes, no rales, no rhonchi. CARDIOVASCULAR: Precordial exam, nondisplaced. No heaves or pericardial thrills. Rate and rhythm, regular. Heart sounds, normal S1, normal S2. No S3, no gallop, no rub. Systolic murmur, not heard. Diastolic murmur, not heard. EXTREMITIES: No cyanosis, no edema. Peripheral pulses, full and equal in all extremities, except as noted. No bruits appreciated. ABDOMEN: Soft, nondistended. Normal aorta. No bruit. Nontender. No masses. Liver, nontender, no hepatomegaly. Spleen, nontender, no splenomegaly. MUSCULOSKELETAL: No joint tenderness. No joint swelling. No erythema. NEUROLOGICAL: Normal gait, normal strength, normal tone. SKIN: Warm and dry. REVIEW OF SYSTEMS: The patient reports easy bruising but reports no swollen glands. The patient reports no fever, no night sweats, no significant weight gain, no significant weight loss. No significant exercise tolerance. The patient reports no dry eyes, no irritation, no vision change. Patient reports no difficulty hearing and no ear pain. Patient reports no frequent nose bleeds or nose and sinus problems. Patient reports on arm pain on exertion. No shortness of breath while lying down. No history of heart murmur. Patient reports no cough, no wheezing or coughing up blood. Patient reports no abdominal pain, no vomiting. Normal appetite. No diarrhea and not vomiting blood. No nausea and no constipation. Patient reports no incontinence. No difficulty urinating. No hematuria. No increased frequency. Patient reports no muscle aches. No weakness, no arthralgias, no back pain. No swelling of the HISTORY AND PHYSICAL [id number] REMADELMA S extremities. Patient reports no abnormal mole, no jaundice, no rashes. Reports no loss of consciousness. No weakness and no numbness. No seizures, dizziness, or headaches. The patient reports no depression, no sleep disturbance, feeling safe in a relationship and no alcohol abuse. Patient reports on fatigue. Reports no runny nose or sinus pressure. No itching, no hives, and no frequent sneezing. OVERALL IMPRESSION: Acute coronary syndrome, most likely he has recurrent hemodynamically significant coronary artery disease. At this time, he is with a pressure of 70. Most likely this is cardiogenic shock from the acute event. We will proceed with coronary angiography. We will give heparin and Integrilin at this time, start him on pressors if need be. His rhythm has stabilized. Further care depends on findings at cardiac catheterization. TRANSINT:[id number] Voice Confirmation ID: [id number] DOCUMENT ID: [id number] KWAN AVALOS MD at 1640 CC: [id number] DICTATION DATE: 05/09/16 0844 LIPCOAT SPRAYER: 05/09/16 0918 ADM IN [id number] [place] [address]
--- NOTE | 2016-05-11 19:45 | NUR ---
1944: Pt remains on vent with RR20X with SPO2 98%. Diprivan titrate for sedation as per orders. Pt SR 90's on CM. IABP 1:3 attached and transduced with augmentation via right groin sheath. Dopamine remains infusing at 7.5 mcg/kg/min at this time. ABD soft tender to palpation. OGT position confirmed with 30 cc air bolus and auscultation. Pt grimaces with movement and has occasional coughing. HR and RR increased with both. Pt does not follow commands, but does move x4 extrem weakly vs gravity. Blevins to gravity with >3 cc/hr dark yellow UOP. Blevins care, SCD care, and Oral care done at this time. Pt remains 1:1 NSG. All monitors are on with alarms intact/set.
--- NOTE | 2016-05-11 22:15 | NUR ---
2215: Attempted to wean dopamine to 5 mcg/kg/min. Pt BP decreased to 70's systolic with augmented BP 80-90's. Dopamine returned to 7.5 mcg/kg/min.
[2016-05-12] VITALS (92 sets, daily range): BP systolic 79–116; BP diastolic 62–90
--- NOTE | 2016-05-12 01:15 | NUR ---
0115: Pt bath and linen change done at this time. Pt HR increased 110-120bpm and pt SBP decreased 70's per NIBP. Pt returned to SR 90's with SBP 90's with removal of stimulation.
[2016-05-12 04:47] LABS: BASOPHILS 0 % (0.0-2.0); EOSINOPHILS 0 % (0-7); HEMATOCRIT 32.2 % (42.0-54.0); IMMATURE GRANULOCYTES 0.8 % (0-5); LYMPHOCYTES 5.6 % (15-50); MCH 32.6 pg (26.0-34.0); MCHC 34.2 g/dL (31.0-37.0); MCV 95.5 fL (80.0-100.0); MEAN PLATELET VOLUME 10.6 fL (7.4-10.4); NEUTROPHILS 83.6 % (40-80); PLATELET COUNT 92 10x3/uL (130-400); RBC 3.37 10x6/uL (4.20-6.10); RDW 17.7 % (11.5-14.5); WBC 7.1 10x3/uL (4.8-10.8)
[2016-05-12 05:01] LABS: ALBUMIN 2.4 g/dL (3.4-5.0); ALKALINE PHOSPHATASE 67 U/L (46-116); ALT (SGPT) 47 U/L (10-68); BILIRUBIN - TOTAL 1.54 mg/dL (0.2-1.3); CALCIUM 7.7 mg/dL (8.5-10.1); CARBON DIOXIDE 29.9 mmol/L (21.0-32.0); CHLORIDE - SERUM 102 mmol/L (98-107); CREATININE - SERUM 0.5 mg/dL (0.6-1.3); MAGNESIUM - SERUM 1.7 mg/dL (1.8-2.4); POTASSIUM - SERUM 3.4 mmol/L (3.5-5.1); SODIUM 139 mmol/L (136-145); UREA NITROGEN 6 mg/dL (7-18); eGFR NON AFRICAN AMERICAN > 90 mL/min (90-120)
[2016-05-12 05:12] LABS: CALC OSMOLALITY 279 mosm/kg (275-300); GLUCOSE 168 mg/dL (74-106); PHOSPHOROUS 1.5 mg/dL (2.5-4.9)
--- NOTE | 2016-05-12 06:00 | NUR ---
0600: AM labs returned. Electrolyte protocol used. Pt remains on Vent with RR 20x with SPO2 99%. Pt remains SR 90's with SBP 90-100. Dopamine continues at 7.5 mcg/kg/min. No change in other IVF/UOP at this time. Right groin site w/o s/s of bleeding, oozing, or swelling and RLE pulses obtained via doppler.
--- NOTE | 2016-05-12 07:35 | NUR ---
RECIEVED PER FLOW SHEET-FEMSTOP PLACED IN PREP FOR IABP REMOVAL-HEPARIN GTT TURNED OFF-PHARMACY NOTIFIED OF NEED FOR PHOS ELECTROLYTE REPLACEMENT
--- NOTE | 2016-05-12 09:35 | NUR ---
0850-DR JAMA CALLED UNIT-PLAN IABP D/C--PT CURRENT LIBBY 8-7-QESOVOHM AT 75 MCG-ATIVAN 2MG IVP GIVEN- 0900-CONTINUES TO ATTEMPT SITTING UP -IV ACCESSES CONFIRMED PATENT-ADDITIONAL MORPHINE 2MG IVP GIVEN FOR PAIN SCALE OF 1-2-UNKNOWN 0912-KICKING IABP LEG-DIPRIVAN BOLUS 10MG GIVEN IN ATTEMPT FOR LIBBY 1-2-AND PREP FOR REMOVAL OF IABP-NIBP 107/74-NOV 116-HR 94 0915-CONTINUES BITING ET TUBE AND COUGHING AGAINST-PEAK PRESSURE 60-ZOFRAN 4MG IV GIVEN FOR POSSIBLE SEVERE NAUSEA-'GAG'-DIPRIVAN 10MG BOLUS GIVEN -STRONG ATTEMPT TO REACH LIBBY 1-2-FEMSTOP PLACED-PT MOVING ALL EXTREMITIES-DOES NOT FOLLOW DIRECTION-NO EYE CONTACT-SUCTIONED FOR NIL 924-ATTEMPTING TO SIT UP -IN SUPINE FOR PREP POSITION -ADDTIONAL
--- NOTE | 2016-05-12 10:01 | NUR ---
0940-ATTEMPTING TO REACH FOR IABP SITE-WRIST RESTRAINTS SECURED TIGHTER-KICKING LEG-IABP ACCESS-SOFT RESTRAINT PLACED TO KEEP STRAIGHT SECOND 22 GAUGE-IV ACCESS OBTAINED IN R AC AND DIPRIVAN GTT TRANSFERED TO THAT SITE-POSSIBLE NON PATENT PREVIOUS SITE-SOFT TO TOUCH-DIP BOLUS 10MG GIVEN-LIBBY 1-2 OBTAINED
--- NOTE | 2016-05-12 11:26 | NUR ---
1040-DR RAMIREZ AT [facility] CURRENT LIBBY 7-5-JRLHQUQE OF CURRENT EVENTS- 1045-SET UP FOR IABP REMOVAL-LIBBY 8-1-ECDSWSAAE RELEASED TO ANKLE 1100-DR JAMA AT BEDSIDE ADDITIONAL DIPRIVAN 10MG BOLUS GIVEN PER PUMP-TO MAINTAIN LIBBY 1-IABP OFF AND D/C'D-DOPPLER AUDIBLE 3 INCHES BELOW GROIN SITE ONLY- 1130-NO AUDIBLE DOPPLER TO PEDAL-CONTINUE DOPPLER 3 IINCHES BELOWGROIN-FEMSTOP DECREASED TO 50-AND HEMOSTASIS MAINTAINED 1133-FAINT AUDLBLE DOPPLER TO PEDAL-ANKLE AREA-LIBBY 1-
--- NOTE | 2016-05-12 19:35 | NUR ---
1400-FEMSTOP IN PLACE AND RELEASED-NO HEMATOMA NOTED-DOPPLER- 1600-NO CHANGES-VENT CHANGE PER RT-DIPRIVAN DECREASED TO 70-LIBBY ZEPEDA
--- NOTE | 2016-05-12 21:00 | NUR ---
2100: Bath and linen change done at this time. Right groin venous line dressing change done with sterile technique and Biopatch placed. Right FA PIV unable to flush. Removed RFA PIV. Pt remains on vent with RR15x with SPO2 98%. No change in RESP/CV/NV status. Pt resting with eyes closed at this time. Pt repositioned for comfort with extrem off bed with pillow supports.
[2016-05-13] VITALS (91 sets, daily range): BP systolic 81–107; BP diastolic 55–83
--- NOTE | 2016-05-13 | NUR ---
0000: No change in pt RESP/CV/NV status. No change in IVF/UOP at this time. Pt remains on vent with RR15x with SPO2 98%. Pt contines on dopamine 6.5 mcg/kg/min and pt remains SR 80's with SBP 100's. Oral care done per RT.
--- NOTE | 2016-05-13 01:45 | NUR ---
0145: Pt bleeding from right groin. Blood arising from previous arterial site. Immediate manual pressure applied for 15 min and then Fem Stop applied to site. Bleeding controlled with above measures. Right dorsalis pedis pulse obtained with doppler and Fem Stop set to 20 mmHg under SBP. (60)
[2016-05-13 01:52] LABS: HEMATOCRIT 30.6 % (42.0-54.0); HEMOGLOBIN 10.3 g/dL (13.5-17.5)
--- NOTE | 2016-05-13 04:00 | NUR ---
0400: Bath done and linen changed at this time. Pt remains SBP 90's at this time with Dopamine infusing 6 mcg/kg/min. Pt remains resting with eyes closed and sedated with diprivan gtt. Vent unchanged and pt RR15x with SPO2 98%. Right groin site with Fem Stop in place and no bleeding is seen from site. Right groin is soft to palpation with no s/s/ of hematoma noted. Will continue to decrease Fem Stop mmHg to control arterial bleeding.
[2016-05-13 04:26] LABS: BASOPHILS 0 % (0.0-2.0); EOSINOPHILS 0 % (0-7); HEMATOCRIT 31.2 % (42.0-54.0); HEMOGLOBIN 10.5 g/dL (13.5-17.5); IMMATURE GRANULOCYTES 0.6 % (0-5); LYMPHOCYTES 5.5 % (15-50); MCH 32.4 pg (26.0-34.0); MCHC 33.7 g/dL (31.0-37.0); MCV 96.3 fL (80.0-100.0); MEAN PLATELET VOLUME 10.6 fL (7.4-10.4); NEUTROPHILS 85.9 % (40-80); PLATELET COUNT 122 10x3/uL (130-400); RBC 3.24 10x6/uL (4.20-6.10); RDW 17.9 % (11.5-14.5); WBC 7.9 10x3/uL (4.8-10.8)
[2016-05-13 04:32] LABS: CALCIUM 7.7 mg/dL (8.5-10.1); CARBON DIOXIDE 30.5 mmol/L (21.0-32.0); CHLORIDE - SERUM 104 mmol/L (98-107); CREATININE - SERUM 0.5 mg/dL (0.6-1.3); GLUCOSE 210 mg/dL (74-106); SODIUM 140 mmol/L (136-145); eGFR NON AFRICAN AMERICAN > 90 mL/min (90-120)
[2016-05-13 04:33] LABS: CALC OSMOLALITY 282 mosm/kg (275-300); MAGNESIUM - SERUM 2.2 mg/dL (1.8-2.4); PHOSPHOROUS 2.2 mg/dL (2.5-4.9); POTASSIUM - SERUM 2.9 mmol/L (3.5-5.1); UREA NITROGEN 8 mg/dL (7-18)
--- NOTE | 2016-05-13 06:00 | NUR ---
0600: Pt right groin site unchanged. Remains with Fem Stop in place at this time. No s/s of hematoma seen/palpable. Lab returned and KCL started as per Electrolyte protocol.
[2016-05-13 06:58] LABS: PROTIME 14.1 SECONDS (11.6-15.0)
[2016-05-13 07:30] LABS: APTT > 200.0 SECONDS (22.8-39.4)
--- NOTE | 2016-05-13 08:14 | NUR ---
0745-RECIEVED PER FLOW SHEET-NOTED AUDIBLE DOPPLER-PULSES TO BOTH LEGS-SKIN PERFUSION-PINK--NOTED R GROIN FEMSTOP IN PLACE AND HEMOSTASIS MAINTAINED NO HEMATOMA NOTED-R GROIN VENOUS SHEATH IN PLACE-DIPRIVAN TITRATED DOWN FOR LIBBY GOAL 3-4
--- NOTE | 2016-05-13 10:46 | NUR ---
DIPRIVAN TITRATED TO 50MCG-L SIDE-CONFIRMED WITH DAUGHTER CONTACT NUMBERS
[2016-05-13 16:06] LABS: HEMATOCRIT 32.5 % (42.0-54.0); HEMOGLOBIN 10.9 g/dL (13.5-17.5)
--- NOTE | 2016-05-13 19:17 | NUR ---
REPORT RECIEVED. ASSESSMENT COMPLETE PER FLOW SHEET. VSS. REFER TO FLOW SHEET FOR FINDINGS. FEM STOP REPOSITIONED. DRSG REAPPLIED
--- NOTE | 2016-05-13 21:16 | NUR ---
FAMILY AT BEDSIDE. GIVEN UPDATE
--- NOTE | 2016-05-13 23:23 | NUR ---
REASSESSMENT COMPLETE PER FLOW SHEET. VSS. NO NEW CHANGES. WILL CONTINUE TO MONITOR.
[2016-05-14] VITALS (57 sets, daily range): BP systolic 80–109; BP diastolic 53–82
[2016-05-14 01:03] LABS: HEMATOCRIT 30.5 % (42.0-54.0); HEMOGLOBIN 10.3 g/dL (13.5-17.5)
--- NOTE | 2016-05-14 01:24 | NUR ---
COMPLETE BB LINEN CHANGE ADM. NO NEW CHANGES
--- NOTE | 2016-05-14 03:09 | NUR ---
REASSESSMENT COMPLETE PER FLOW SHEET. R GROIN BLEEDING PRESSURE DRESSING APLPIED WITH SAND BAG
[2016-05-14 04:38] LABS: BASOPHILS 0 % (0.0-2.0); EOSINOPHILS 0 % (0-7); HEMATOCRIT 32.3 % (42.0-54.0); HEMOGLOBIN 10.6 g/dL (13.5-17.5); IMMATURE GRANULOCYTES 0.7 % (0-5); MCHC 32.8 g/dL (31.0-37.0); MCV 97.6 fL (80.0-100.0); MEAN PLATELET VOLUME 10.1 fL (7.4-10.4); MONOCYTES 14.4 % (2-11); NEUTROPHILS 77.9 % (40-80); PLATELET COUNT 126 10x3/uL (130-400); RBC 3.31 10x6/uL (4.20-6.10); RDW 17.8 % (11.5-14.5); WBC 9.5 10x3/uL (4.8-10.8)
[2016-05-14 05:00] LABS: ALBUMIN 2.2 g/dL (3.4-5.0); ALKALINE PHOSPHATASE 60 U/L (46-116); CALCIUM 7.9 mg/dL (8.5-10.1); CARBON DIOXIDE 28.1 mmol/L (21.0-32.0); CHLORIDE - SERUM 105 mmol/L (98-107); CREATININE - SERUM 0.5 mg/dL (0.6-1.3); PROTEIN - SERUM 6.9 g/dL (6.4-8.2); SODIUM 141 mmol/L (136-145); UREA NITROGEN 9 mg/dL (7-18); eGFR NON AFRICAN AMERICAN > 90 mL/min (90-120)
[2016-05-14 05:04] LABS: ALT (SGPT) 63 U/L (10-68); CALC OSMOLALITY 282 mosm/kg (275-300); GLUCOSE 153 mg/dL (74-106); POTASSIUM - SERUM 3.6 mmol/L (3.5-5.1)
--- NOTE | 2016-05-14 05:08 | NUR ---
NO NEW CHANGES AT THIS TIME. WILL CONTINUE TO MONITOR.
--- NOTE | 2016-05-14 07:15 | NUR ---
BEDSIDE REPORT RECIEVED FROM BENDER MACHINE NURSE. PT SEDATED ON VENT. DOES NOT ARROUSE TO DEEP STIMULATION. FEM STOP IN PLACE. R PEDAL PULSE FOUND USING DOPPLER. WILL DISCUSS SHEATH REMOVAL WITH DR. AVALOS TODAY.
[2016-05-14 08:09] LABS: HEMATOCRIT 32.1 % (42.0-54.0); HEMOGLOBIN 10.6 g/dL (13.5-17.5)
--- NOTE | 2016-05-14 09:30 | NUR ---
PT TAKEN TO CT. PLACED ON PORTABLE VENT AND PORTBALE MONITOR. WILL REMAIN WITH PT DURING SCAN. NO ISSUES NOTED AT THIS TIME. WILL CONTINUE TO ASSESS.
--- NOTE | 2016-05-14 09:54 | NUR ---
Nutrition follow-up: Pt intubated, sedated. Pulmocare infusing @ 20 ml/hr. Labs reviewed. RN reports pt with no BS at this time No BM recorded. Wt: 148# Recommend increasing TF to goal rate of 50 ml/hr RDN following.
--- NOTE | 2016-05-14 10:05 | NUR ---
RETURNED FROM CT. PLACED ON VENT PER RT. VSS ON CM. WILL CONTINUE TO ASSESS.
--- NOTE | 2016-05-14 11:45 | NUR ---
PT REPOSITIONED FOR COMFORT. ORAL CARE PROVIDED. SEDATION VACATION PROVIDED. PT ABLE TO OPEN EYES WHEN ASKED TO. GAG REFLEX PRESENT.
--- NOTE | 2016-05-14 12:30 | NUR ---
PT RETUNED FROM IR. DRESSING TO RIGHT GROIN C/D/I. PT INSTRUCTED TO KEEP LEG STRAIGHT FOR THE NEXT FOUR HOURS. WILL ASSESS FOR CHANGES.
--- NOTE | 2016-05-14 13:00 | NUR ---
NO CHANGES NOTED AT THIS TIME. WILL CONTINUE TO ASSESS.
--- NOTE | 2016-05-14 15:00 | NUR ---
SHEATH TO RIGHT GROIN REMOVED. FEM STOP PLACED OVER INSERTION SITE. WILL MONITOR FOR CHANGES.
--- NOTE | 2016-05-14 15:00 | NUR ---
SON AT BEDSIDE FOR VISITATION. PT SLEEPING. SON STATED HE WOULD WAIT IN THE WAITING ROOM FOR NEXT VISITATION HOUR.
--- NOTE | 2016-05-14 16:00 | NUR ---
FEMSTOP RELEASED. NO BLEEDING NOTED. PEDAL PULSE FOUND USING A DOPPLER. WILL MONITOR SITE.
--- NOTE | 2016-05-14 18:00 | NUR ---
FSBS CHECKED-222. WILL COVER PER S/S.
--- NOTE | 2016-05-14 19:20 | NUR ---
REC'D PT ON VENT VIA 8.0 ETT TAPED @ 22CM LIPLINE SEE FLOWSHEET FOR VENT SETTINGS, OGT SECURED TO ETT WITH PULMOCARE INFUSING @ 30CC/HR, PLACEMENT VERIFIED VIA SM AIR BOLUS AUSCULTATED OVER EPIGASTRIM, PT AROUSABLE TO DEEP STIMULI, BUT DOES NOT FOLLOW COMMANDS, RIGHT UPPER ARM PICC LINE WITH DIPRIVAN @ 20MCG/KG/MIN, BANANA BAG @ 1OOCC/HR, AND DOPAMINE @ 10MCG/KG/MIN, RIGHT FOREARM PIV WITH HEPARIN @ 800 UNITS/HR, LEFT FOREARM PIV SALINE LOCKED, GENERALIZED EDEMA, FINGERS AND HANDS STAINED FROM NICOTINE, RIGHT GROIN OPEN TO AIR, BRUISES NOTED, NO BLEEDING OR HEMATOMA, TABARES PATENT DRAINING JAYJAY COLORED URINE, BILAT SCDS INTACT, BILAT PP BY DOPPLER AND MARKED, BILAT SOFT WRIST RESTRAINTS INTACT, VISIBLE TO NURSES STATION.
--- NOTE | 2016-05-14 20:30 | NUR ---
PT REPOSITIONED IN FOR COMFORT, ORAL CARE PROVIDED.
--- NOTE | 2016-05-14 21:15 | NUR ---
EVENING MEDS GIVEN, NO FAMILY IN AT THIS TIME.
--- NOTE | 2016-05-14 22:30 | NUR ---
FEMSTOP REMOVED FROM BED, RIGHT GROIN REMAINS WITHOUT BLEEDING OR HEMATOMA, PT REPOSITIONED UP AND ONTO SIDE, TITRATING DOPAMINE TOLERATED, SBP 90'S.
[2016-05-15] VITALS (59 sets, daily range): BP systolic 77–111; BP diastolic 58–87
--- NOTE | 2016-05-15 | NUR ---
ROUTINE MEDS GIVEN, ORAL CARE PROVIDED, THICK CLEAR SECRETIONS REMOVED FROM MOUTH
--- NOTE | 2016-05-15 02:00 | NUR ---
NO CHANGES IN STATUS AT THIS TIIME.
--- NOTE | 2016-05-15 04:00 | NUR ---
COMPLETE BATH AND LINEN CHANGE GIVEN, PT REPOSITIONED UP AND ONTO LEFT SIDE SUPPORTEDW WITH PILLOWS, TOLERATED WELL.
[2016-05-15 05:35] LABS: BASOPHILS 0 % (0.0-2.0); EOSINOPHILS 0 % (0-7); HEMATOCRIT 30.6 % (42.0-54.0); HEMOGLOBIN 10.3 g/dL (13.5-17.5); IMMATURE GRANULOCYTES 0.5 % (0-5); LYMPHOCYTES 5.8 % (15-50); MCH 32.5 pg (26.0-34.0); MCHC 33.7 g/dL (31.0-37.0); MCV 96.5 fL (80.0-100.0); MEAN PLATELET VOLUME 10.3 fL (7.4-10.4); MONOCYTES 10.6 % (2-11); NEUTROPHILS 83.1 % (40-80); PLATELET COUNT 144 10x3/uL (130-400); RBC 3.17 10x6/uL (4.20-6.10); RDW 17.2 % (11.5-14.5); WBC 8.8 10x3/uL (4.8-10.8)
[2016-05-15 05:47] LABS: ALBUMIN 2.2 g/dL (3.4-5.0); ALKALINE PHOSPHATASE 107 U/L (46-116); ALT (SGPT) 54 U/L (10-68); BILIRUBIN - TOTAL 0.82 mg/dL (0.2-1.3); CARBON DIOXIDE 27.5 mmol/L (21.0-32.0); CHLORIDE - SERUM 102 mmol/L (98-107); CREATININE - SERUM 0.5 mg/dL (0.6-1.3); MAGNESIUM - SERUM 1.8 mg/dL (1.8-2.4); POTASSIUM - SERUM 3.5 mmol/L (3.5-5.1); PROTEIN - SERUM 6.9 g/dL (6.4-8.2); SODIUM 137 mmol/L (136-145); UREA NITROGEN 9 mg/dL (7-18); eGFR NON AFRICAN AMERICAN > 90 mL/min (90-120)
[2016-05-15 05:53] LABS: CALC OSMOLALITY 281 mosm/kg (275-300); GLUCOSE 253 mg/dL (74-106)
--- NOTE | 2016-05-15 06:00 | NUR ---
AM MEDS GIVEN, NO VISITORS IN AT THIS TIME, SBP 90'S WILL REPORT TO ONCOMING SHIFT
--- NOTE | 2016-05-15 07:30 | NUR ---
REPORT RECIEVED FROM EMERY WHEEL MOLDER NURSE. UPON ASSESSMENT PT SEDATED ON VENT VIA 8.0 ETT TAPED AT 22CM LIPLINE. REFER TO FLOWSHEET FOR VENT SETTINGS, OGT SECURED TO ETT WITH PULMOCARE INFUSING @ 40CC/HR, PLACEMENT VERIFIED VIA SM AIR BOLUS AUSCULTATED OVER EPIGASTRIM, PT AROUSABLE TO DEEP STIMULI, BUT DOES NOT FOLLOW COMMANDS, RIGHT GROIN SITE DRESSING C/D/I, NO BLEEDING NOTED. SOME BRUISING NOTED AROUND INSERTION SITE. BILAT PEDAL PULSES FOUND USING DOPPLER. F/C PATENT DRAINING DARK CONCENTRATED URINE. BILAT SOFT WRIST RESTRAINTS ON. SCS ON BILAT. WILL CONTINUE TO ASSESS FOR CHANGES THROUGHOUT SHIFT. BRUISES NOTED, NO BLEEDING OR HEMATOMA, TABARES PATENT DRAINING JAYJAY COLORED URINE, BILAT SCDS INTACT, BILAT PP BY DOPPLER AND MARKED, BILAT SOFT WRIST RESTRAINTS INTACT, VISIBLE TO NURSES STATION.
--- NOTE | 2016-05-15 09:00 | NUR ---
FAMILY AT BEDSIDE. UPDATE PROVIDED.
--- NOTE | 2016-05-15 09:55 | NUR ---
PLACED ON CPAP MODE PER DR. GOMEZ. SEDATION TURNED OFF WELL FEEDS FOR POSSIBLE EXTUBATION. WILL CONTINUE TO ASSESS.
--- NOTE | 2016-05-15 10:29 | NUR ---
PATIENT REMAINS ON THE VENT AND UNABLE TO ANSWER QUESTIONS. I HAVE NOT SEEN ANY FAMILY VISIT TO INTERVIEW AT THIS TIME. CM TO FOLLOW. I WILL ASK NURSE IF FAMILY ARRIVES TO CALL ME.
--- NOTE | 2016-05-15 11:35 | NUR ---
NO CHANGE NEEDED TO HEPARIN GTT. REFER TO FLOWSHEET.
--- NOTE | 2016-05-15 12:50 | NUR ---
CRITICAL AMONIA CALLED TO DR. BLACKMON. ORDERS RECIEVED FOR LACTULOSE.
--- NOTE | 2016-05-15 14:30 | NUR ---
PT TURNED AND REPOSITIONED FOR COMFORT. ORAL CARE PROVIDED.
--- NOTE | 2016-05-15 16:00 | NUR ---
NO CHANGES NOTED AT THIS TIME. WILL CONT TO ASSESS.
--- NOTE | 2016-05-15 18:00 | NUR ---
FAMILY AT BEDSIDE. UPDATE PROVIDED.
--- NOTE | 2016-05-15 19:30 | NUR ---
REPORT REC'D AND CARE ASSUMED, REC'D PT ON VENT VIA 8.0 ETT TAPED @ 22CM LIPLINE SEE FLOWSHEET FOR VENT SETTINGS, OGT TAPED SECURELY TO ETT, PULMOCARE INFUSING @ 50CC/HR, RIGHT UPPER ARM PICC LINE DRSG WITH DRIED SANGUINOUS DRAINAGE, BANANA BAG INFUSING @ 75CC/HR, DOPAMINE @ 11MCG/KG/MIN, AND DIPRIVAN @ 20MCG/KG/MIN, RIGHT FOREARM PIV WITH HEPARIN @ 1000 UNITS/HR, RIGHT GROIN DRSG CDI, BRUISING NOTED, NO FURTHER BLEEDING OR HEMATOMA, TABARES PATENT DRAINING JAYJAY COLORED URINE, GENERALIZED EDEMA, PT DIAPHORETIC INTERMITTENTLY, TEMP 98.4, LEFT PIV SALINE LOCKED, SCABS AND SORES NOTED TO LOWER EXT'S AND FEET, HEELS BRIDGED, BILAT SOFT WRIST RESTRAINTS INTACT.
--- NOTE | 2016-05-15 20:50 | NUR ---
SERUM POTASSIUM DRAWN AND SENT TO LAB
--- NOTE | 2016-05-15 21:30 | NUR ---
EVENING MEDS GIVEN, NO VISITORS IN AT THIS TIME
--- NOTE | 2016-05-15 22:00 | NUR ---
TF RESIDUAL 280, TF HELD AT THIS TIME, OGT FLUSHED AND CLAMPED AT THIS TIME.
--- NOTE | 2016-05-15 23:30 | NUR ---
REASSESSMENT COMPLETED, PT REMAINS DIAPHORETIC, FSBS 274, 6 UNITS REGULAR INSULIN GIVEN TO LUQ, BP STABLE, ATTEMPTING TO WEAN DOPAMINE TOLERATED, DOPAMINE DECREASED TO 9MCG/KG/MIN
[2016-05-16] VITALS (57 sets, daily range): BP systolic 80–106; BP diastolic 62–83
--- NOTE | 2016-05-16 01:30 | NUR ---
VENT ALARMING FREQUENTLY, RT AT BS ASSESSING PROBLEM, DOPAMINE DECREASED TO 8MCG/KG/MIN
--- NOTE | 2016-05-16 02:15 | NUR ---
BP 85/49, DOPAMINE INCREASED TO 9MCG/KG/MIN WILL MONITOR CLOSELY FOR CHANGES.
--- NOTE | 2016-05-16 03:15 | NUR ---
RADIOLOGY AT FOR AM CXR, PT REPOSITIONED UP IN BED , ORAL CARE PROVIDED.
--- NOTE | 2016-05-16 05:00 | NUR ---
NO CHANGES IN STATUS
--- NOTE | 2016-05-16 06:00 | NUR ---
AM MEDS GIVEN
[2016-05-16 06:30] LABS: BASOPHILS 0.1 % (0.0-2.0); EOSINOPHILS 0.1 % (0-7); HEMATOCRIT 29.8 % (42.0-54.0); HEMOGLOBIN 9.9 g/dL (13.5-17.5); IMMATURE GRANULOCYTES 0.7 % (0-5); LYMPHOCYTES 6.1 % (15-50); MCH 32.7 pg (26.0-34.0); MCHC 33.2 g/dL (31.0-37.0); MCV 98.3 fL (80.0-100.0); MONOCYTES 11.8 % (2-11); NEUTROPHILS 81.2 % (40-80); PLATELET COUNT 165 10x3/uL (130-400); RBC 3.03 10x6/uL (4.20-6.10); RDW 17.4 % (11.5-14.5); WBC 9.9 10x3/uL (4.8-10.8)
[2016-05-16 06:57] LABS: ALBUMIN 2.2 g/dL (3.4-5.0); ALKALINE PHOSPHATASE 87 U/L (46-116); ALT (SGPT) 48 U/L (10-68); BILIRUBIN - TOTAL 0.93 mg/dL (0.2-1.3); CALC OSMOLALITY 279 mosm/kg (275-300); CALCIUM 8.1 mg/dL (8.5-10.1); CARBON DIOXIDE 28.7 mmol/L (21.0-32.0); CHLORIDE - SERUM 100 mmol/L (98-107); CREATININE - SERUM 0.6 mg/dL (0.6-1.3); GLUCOSE 269 mg/dL (74-106); MAGNESIUM - SERUM 1.7 mg/dL (1.8-2.4); POTASSIUM - SERUM 3.8 mmol/L (3.5-5.1); PROTEIN - SERUM 6.2 g/dL (6.4-8.2); SODIUM 136 mmol/L (136-145); UREA NITROGEN 9 mg/dL (7-18); eGFR NON AFRICAN AMERICAN > 90 mL/min (90-120)
--- NOTE | 2016-05-16 07:15 | NUR ---
REPORT RECIEVED FROM TUNNEL KILN FIRER NURSE. UPON ASSESSMENT PT SEDATED ON VENT VIA 8.0 ETT TAPED @ 22CM. LIPLINE SEE FLOWSHEET FOR VENT SETTING. OGT TAPED SECURELY TO ETT, PULMOCARE INFUSING @ 50CC/HR. 200CC RESIDUAL NOTED TO. TUBE FEEDS TURNED OFF. PT NOT RESPONVIVE TO VERBAL, DEEP, OR PAINFUL STIMULATION. RIGHT UPPER ARM PICC DRESSING C/D/I. BIOPATCH IN PLACE ALONG WITH SWAB CAPS. BANANA BAG INFUSING @ 75CC/HR, DOPAMINE @ 11MCG/KG/MIN, AND DIPRIVAN @ 20MCG/KG/MIN, RIGHT FOREARM PIV WITH HEPARIN @ 1000 UNITS/HR, RIGHT GROIN DRSG CDI, BRUISING NOTED, NO FURTHER BLEEDING OR HEMATOMA, TABARES PATENT DRAINING DARK CONCENTRATED COLORED URINE, GENERALIZED EDEMA, SCABS AND SORES LOWER EXT'S AND FEET, HEELS BRIDGED, BILAT SOFT WRIST RESTRAINTS INTACT. VSS AT THIS TIME. WILL CONTINUE TO MONITOR FOR CHANGES THROUGHOUT SHIFT.
--- NOTE | 2016-05-16 09:00 | NUR ---
ORAL CARE PROVIDED. PT TURNED AND REPOSITIONED FOR COMFORT.
--- NOTE | 2016-05-16 11:00 | NUR ---
TUBE FEEDS STARTED. WILL REASSESS RESIDUAL.
--- NOTE | 2016-05-16 12:09 | NUR ---
WOUND CARE CONSULT; NO CHRONIC WOUNDS NOTED. BILATERAL FEET ARE COOL TO TOUCH. NOTED A SCABBED AREA ON LEFT GREAT TOE. PULSES BY DOPPLER. WILL MONITOR NEEDED.
--- NOTE | 2016-05-16 14:16 | EC ---
PATIENT:DELMA HODGSON DATE OF SERVICE: 05/09/16 SEX: M MEDICAL RECORD: [id number] DATE OF : 60 LOCATION:[facility] D230 AGE OF PATIENT: 56 ADMISSION DATE: 05/09/16 REFERRING PHYSICIAN: INTERPRETING PHYSICIAN: JOHNNIE JAMA MD ECHOCARDIOGRAM REPORT ECHO CHARGES 4 ECHO COMPLETE CLINICAL DIAGNOSIS: PULMONARY HTN HX CAD PATIENT ON [place] PUMP ECHOCARDIOGRAPHIC MEASUREMENTS (adult normal given) AC root (d.<3.7cm) 3.9 LV Septum d (<1.2 cm> 1.1 Valve Excursion 1.0 LV Septum (systole) 1.4 Left Atria (s.<4.0cm> 5.1 LVPW d(<1.2cm) 1.1 RV (d.<2.3cm) 3.4 LVPW (sytole) 1.5 LV diastole(<5.6CM) 7.6 MV E-F(>70mm/sec) LV systole 6.0 LVOT Diameter 2.0 MV exc.(>10mm) 1.8 Est.ejection fraction (50-75%) Pericardial Effusion Y DOPPLER: LVIT A 41.0 E 177 LA RVSP 46 LVOT 76 AOP1/2T Asc. Ao 110 RVOT 62 RA PA 94 AV Gradient Peak 4.86 AV Mean 2.5 AV Area 2.6 MV Gradient Peak 17.03 MV Mean 5.40 MV Area COMMENTS: Date Night Caregiver: Tamela ESQUIVEL Linter Saw Sharpener:1 Dr. Soliman TAPE# PACS DATE OF SERVICE: 05/11/2016 Adequate 2D echo, color flow and spectral Doppler, and M-mode. No LVH. LV internal dimensions are dilated. LV is severely globally hypokinetic, reduced EF, estimated at 20%. Aortic valve is sclerotic. There is no stenosis by Doppler interrogation. The left atrium is dilated at 5.1 cm. Mitral valve shows some redundancy with no complete prolapse plus severe MR. Right-sided chamber is grossly normal. Moderate TR. RV systolic pressure is estimated greater than or equal to 46 mmHg via the continuity equation. ECHOCARDIOGRAM REPORT [id number] DELMA HODGSON TRANSINT:[id number] Voice Confirmation ID: [id number] DOCUMENT ID: [id number] 05/16/2015 Edited to correct date of service, dmm. JOHNNIE JAMA MD at 1416 CC: [id number] DICTATION DATE: 05/13/16 1053 PROGRAM DEVELOPMENT SPECIALIST: 05/13/161955 ADM IN [place] [id number] [place] [address]
--- NOTE | 2016-05-16 14:30 | NUR ---
TUBE FEEDS TURNED OFF. RESIDUAL OF 150CC NOTED. PT'S ABD SOFT, BUT DISTENDED. REMAINS HYPOACTIVE. NO BM NOTED. DR. BLACKMON NOTIFIED. AMONIA RESULTS ALSO REPORTED. WILL CONTINUE TO ASSESS.
--- NOTE | 2016-05-16 15:00 | NUR ---
PT REMAINS OFF SEDATION. REMIANS UNRESPONSIVE AT THIS TIME. WILL CONT TO ASSESS FOR CHANGES.
--- NOTE | 2016-05-16 16:09 | NUR ---
SPOKE WITH PT'S DAUGHTER. UPDATE PROVIDED.
--- NOTE | 2016-05-16 19:00 | NUR ---
RECEIVED PATIENT IN BED WITH EYES CLOSED ON VENT, ASSESSMENT COMPLETED PER FLOWSHEET. PATIENT IS SEDATED, MOVES HEAD BUT DOES NOT FOLLOW OR RESPOND TO COMMANDS. ETT/OGT 8.0, 22CM LOCATED [facility], PULMOCARE ON HOLD DUE TO HIGH RESIDUALS. S1/S2 NOTED WITH PATIENT SINUS TACHYCARDIA ON TELEMETRY. PATIENT ON VENT R-10, V-550, P-5, SUPP-10, 30%. LUNG SOUNDS ARE CLEAR BILATERAL UPPER WITH DIMINISHED LOWER, BREATHING IS EVEN AND REGULAR. ABDOMEN IS DISTENDED AND SOFT, BOWEL SOUNDS HYPOACTIVE X4. TABARES SECURED IN PLACE WITH DARK CONCENTRATED URINE NOTED IN COLLECTIONE BAG. PASSIVE ROM ON ALL EXTREMITIES, WEAKNESS NOTED ALL EXTREMITIES. OCCLUSIVE DRESSING R GROIN, NO ERYTHEMA OR SWELLING NOTED. SORES NOTED BILATERAL LOWER LEGS AND FEET, NON-TENTING TURGOR NOTED. PICC NOTED R UPPER ARM WITH FLUIDS INFUSING, SEE FLOW SHEET. UPPER EXTREMITIES PALPABLE, DOPPLER USED TO LOCATE PEDAL PULSES. ORAL CARE SUCTIONING PROVIDED, PATIENT REPOSITIONED FOR COMFORT. NO FURTHER NEEDS AT THIS TIME, ALL VSS AND WILL CONTINUE TO MONITOR.
--- NOTE | 2016-05-16 21:00 | NUR ---
NO VISITORS AT THIS TIME, PATIENT RESTING IN BED WITH EYES CLOSED ON VENT. SETTINGS ARE UNCHANGED, PATIENT HAS BEEN OFF OF SEDATION ALL DAY (05/16). PATIENT STILL DOES NOT FOLLOW COMMANDS, AND ONLY MOVES HEAD. CURRENTLY ALL VSS AND WILL CONTINUE TO MONITOR.
--- NOTE | 2016-05-16 22:55 | NUR ---
REASSESSMENT COMPLETE PER FLOWSHEET, PATIENT RESTING IN BED WITH EYES CLOSED ON VENT. PATIENT IS SINUS TACHYCARDIA ON TELEMETRY, RATE IS RAPID AND REGULAR. LUNG SOUNDS CLEAR BILATERAL UPPER WITH DIMINISHED LOWER, VENT SETTINGS UNCHANGED FROM PREVIOUS ASSESSMENT. ORAL CARE/SUCTIONING PROVIDED, PATIENT REPOSITIONED FOR COMFORT. PATIENT STILL DOES NOT FOLLOW COMMANDS, DOES NOT RESPOND/OPEN EYES BUT WITHDRAWS FROM PAIN STIMULI. NO SEDATION IN USE, ALL VSS AND WILL CONINUE TO MONITOR.
[2016-05-17] VITALS (76 sets, daily range): BP systolic 42–89; BP diastolic 22–73
--- NOTE | 2016-05-17 01:00 | NUR ---
RESTARTED TUBE FEEDING WITH PULMOCARE @ 10ML/HR, WILL CHECK RESIDUALS TO DETERMINE TOLERANCE. PATIENT REPOSITIONED FOR COMFORT, ORAL CARE/SUCTIONING PROVIDED. ALL VSS AND WILL CONTINIUE TO MONITOR.
--- NOTE | 2016-05-17 03:00 | NUR ---
REASSESSMENT COMPLETE PER FLOWSHEET, PATIENT RESTING IN BED WITH EYES CLOSED ON VENT. PATIENT IS TACHYCARDIC ON TELEMETRY, S1/S2 NOTED. BREATHING ON VENT WITH SETTINGS UNCHANGED FROM PREVIOUS ASSESSMENT, LUNG SOUNDS ARE CLEAR UPPER WITH DIMINISHED LOWER. RESIDUAL CHECKED AND 26ML ASPIRATED AND RETURNED, TUBE FEEDING HELD. ORAL CARE/SUCTIONING PROVIDED AND PATIENT REPOSITIONED FOR COMFORT. ALL VSS AND WILL CONTINUE TO MONITOR.
--- NOTE | 2016-05-17 04:08 | NUR ---
PATIENT PH 7.6 PER ABG WITH HR INCREASED TO 148. SPOKE WITH ROBI DURAND, SEDATION TO BE RESTARTED AT 10MCG/KG. WILL CONTINUE TO MONITOR.
--- NOTE | 2016-05-17 04:45 | NUR ---
PATIENT HR >140, CALLED DR OLIVARES TO REQUEST INSTRUCTIONS. PER MARSHALL, D/C DOPAMINE DRIP AND CHANGE TO DOBUTAMINE @ 5MCG/KG. PROPOFOL INCREASED TO 20MCG/KG, WILL CONTINUE TO MONITOR.
--- NOTE | 2016-05-17 05:56 | NUR ---
UPDATE CALLED TO DR. OLIVARES, NEW ORDERS RECIEVED,
[2016-05-17 06:01] LABS: BASOPHILS 0.1 % (0.0-2.0); EOSINOPHILS 0 % (0-7); HEMATOCRIT 31.4 % (42.0-54.0); HEMOGLOBIN 10.6 g/dL (13.5-17.5); IMMATURE GRANULOCYTES 0.5 % (0-5); LYMPHOCYTES 5.9 % (15-50); MCH 32.9 pg (26.0-34.0); MCHC 33.8 g/dL (31.0-37.0); MCV 97.5 fL (80.0-100.0); MEAN PLATELET VOLUME 10.9 fL (7.4-10.4); MONOCYTES 18.2 % (2-11); NEUTROPHILS 75.3 % (40-80); PLATELET COUNT 184 10x3/uL (130-400); RBC 3.22 10x6/uL (4.20-6.10); RDW 17.2 % (11.5-14.5); WBC 10.6 10x3/uL (4.8-10.8)
--- NOTE | 2016-05-17 06:35 | NUR ---
CALLED DAUGHTER WITH UPDATE ON DECLINING CONDITION, DAUGHTER STATED SHE "ISN'T COMING UP BECAUSE SHE HAS TO GO TO WORK" AND SHE WANTS US TO "DO EVERYTHING". NOTIFIED DR OLIVARES AND WILL INFORM DR AVALOS OF CONDITION, WILL CONTINUE TO MONITOR.
--- NOTE | 2016-05-17 07:00 | NUR ---
ASSESSMENT COMPLETE PER FLOW SHEET. VITAL SIGNS UNSTABLE. ABGS OBTAINED.
[2016-05-17 07:05] LABS: BILIRUBIN - TOTAL 1.09 mg/dL (0.2-1.3); CALCIUM 8.5 mg/dL (8.5-10.1); MAGNESIUM - SERUM 2.1 mg/dL (1.8-2.4); PROTEIN - SERUM 6.2 g/dL (6.4-8.2)
[2016-05-17 07:07] LABS: ANION GAP 19.2 mmol/L (8-16); CARBON DIOXIDE 20.9 mmol/L (21.0-32.0); CREATININE - SERUM 1.5 mg/dL (0.6-1.3); POTASSIUM - SERUM 3.1 mmol/L (3.5-5.1)
--- NOTE | 2016-05-17 07:30 | NUR ---
ABG RESULTS CALLED TO DR. BLACKMON. NEW ORDERS REC'D AND IMPLEMENTED.
--- NOTE | 2016-05-17 07:35 | NUR ---
DR BLACKMON CALLED AND UPDATED ON PATIENT CONDITION, BICARB DRIP TO BE INITIATED. REPORT GIVEN TO NARESH DURAND. WILL CONTINUE TO MONITOR.
--- NOTE | 2016-05-17 09:30 | NUR ---
DR. BLACKMON SPOKE WITH DAUGHTER VIA PHONE, REC'D CONSENT FROM HER FOR DNR SHE IS POA. SIGNED AND WITNESSED CONSENT. DAUGHTER WAS NOTIFIED PER DR. BLACKMON OF PT'S POOR PROGNOSIS AND THAT WE ARE DOING EVERYTHING WE CAN FOR HIM.
--- NOTE | 2016-05-17 09:30 | NUR ---
DR. BLACKMON AT BEDSIDE.. NEW ORDERS REC'D.
--- NOTE | 2016-05-17 09:39 | NUR ---
Nutrition follow-up: TF on hold due to elevated residuals. Labs reviewed Abdomen distended RDN following.
--- NOTE | 2016-05-17 09:45 | NUR ---
DR. AMAYA AT BEDSIDE.. NEW ORDERS REC'D.
--- NOTE | 2016-05-17 11:00 | NUR ---
REASSESSMENT COMPLETE PER FLOW SHEET. NO CHANGES NOTED.
--- NOTE | 2016-05-17 13:00 | NUR ---
VS CRITICA BUT STABLE.. WILL CONTINUE TO MONITOR.
--- NOTE | 2016-05-17 15:00 | NUR ---
REASSESSMENT COMPLETE PER FLOW SHEET. NO CHANGES NOTED. WILL CONTINUE TO MONITOR.
[2016-05-17 16:31] LABS: APPEARANCE SLT CLOUDY (CLEAR); BACTERIA MODERATE /hpf (NONE SEEN); BILIRUBIN NEGATIVE (NEGATIVE); COLOR YELLOW (YELLOW); EPITHELIAL CELLS 0-5 /hpf (0-5); GLUCOSE NEGATIVE (NEGATIVE); KETONE NEGATIVE (NEGATIVE); LEUKOCYTE ESTERASE 1+ (NEGATIVE); NITRITE NEGATIVE (NEGATIVE); PROTEIN 1+ mg/dL (NEGATIVE); RED CELLS - URINE >50 /hpf (0-5); SPECIFIC GRAVITY 1.015 (1.005-1.020)
[2016-05-17 16:32] LABS: AMORPHOUS SEDIMENT <1+ /lpf (NONE SEEN); MUCUS <1+ /lpf (NONE SEEN)
--- NOTE | 2016-05-17 19:30 | NUR ---
REPORT RECIEVED, SHIFT ASSESSMENT COMPLETE, PT IS UNRESPONSIVE ON VENT, ON 100% FIO2 WITH 96% O2 SAT. CRACKLES HEARD IN B/L UPPER LOBES, DIMINISHED IN B/L LOWER LOBES, S1S2, CM-ST, PATENT OGT WITH BROWN DRAINAGE NOTED, PATENT RIGHT UPPER ARM PICC...SEE FLOW SHEET..ABDOMEN IS DISTENDED WITH ABSENT BS X4, PATENT F/C WITH DARK UOP, EDEMA NOTED IN ALL EXTREMTIES, B/L UPPER PULSES PALAPBLE, B/L PEDAL PULSES DOPPLERED, REPOSITIONED FOR COMFORT, WILL CON'T TO MONITOR
--- NOTE | 2016-05-17 21:00 | NUR ---
COMPLETE BATH AND LINEN CHANGE, PT TOLERATED WELL
--- NOTE | 2016-05-17 23:12 | NUR ---
REASSESSMNET COMPLETE PER FLOW SHEET. NO NEW CHNAGES AT THIS TIME. VSS WILL CONTINUE TO MONITOR.
[2016-05-18] VITALS (40 sets, daily range): BP systolic 00–62; BP diastolic 00–60
--- NOTE | 2016-05-18 01:20 | NUR ---
REPOSITIONED FOR COMFORT, WILL CON'T TO MONITOR
--- NOTE | 2016-05-18 03:00 | NUR ---
REASSESSMENT COMPLETE, NO CHANGES NOTED, PT REPOSITIONED FOR COMFORT, WILL CON'T TO MONITOR
--- NOTE | 2016-05-18 05:00 | NUR ---
REPOSITIONED FOR COMFORT, ORAL CARE PROVIDED,
[2016-05-18 05:19] LABS: MCH 32.2 pg (26.0-34.0); MCHC 31.3 g/dL (31.0-37.0); MEAN PLATELET VOLUME 11.8 fL (7.4-10.4); RDW 18.4 % (11.5-14.5)
[2016-05-18 05:29] LABS: PLATELET COUNT 142 10x3/uL (130-400); RBC 2.33 10x6/uL (4.20-6.10); WBC 17.5 10x3/uL (4.8-10.8)
[2016-05-18 05:30] LABS: HEMOGLOBIN 7.5 g/dL (13.5-17.5)
[2016-05-18 05:37] LABS: BILIRUBIN - TOTAL 1.36 mg/dL (0.2-1.3)
[2016-05-18 05:41] LABS: ALBUMIN 1.4 g/dL (3.4-5.0); ANION GAP 31.1 mmol/L (8-16); CARBON DIOXIDE 13.4 mmol/L (21.0-32.0); CREATININE - SERUM 2.7 mg/dL (0.6-1.3); MAGNESIUM - SERUM 3.1 mg/dL (1.8-2.4); POTASSIUM - SERUM 4.5 mmol/L (3.5-5.1); PROTEIN - SERUM 4.4 g/dL (6.4-8.2)
[2016-05-18 05:42] LABS: CALCIUM 6.7 mg/dL (8.5-10.1)
[2016-05-18 06:17] LABS: LYMPHOCYTES 25 % (15-50); MONOCYTES 5 % (2-11); NEUTROPHILS 25 % (40-80); PLATELET ESTIMATE NORMAL
--- NOTE | 2016-05-18 07:30 | NUR ---
RECEIVED PT FOR CARE. ASSESSMENT COMPLETED.
--- NOTE | 2016-05-18 09:05 | NUR ---
NO CHANGES NOTED.
--- NOTE | 2016-05-18 10:36 | NUR ---
PT'S OGT NOT PULLING WITH SUCTION. UNABLE TO VERIFY PLACEMENT WITH AIR BOLUS. D/C'D. END WAS CLOGGED. ATTEMPTED TO PLACE OGT MULTIPLE TIMES. UNABLE TO PLACE. DR. BLACKMON NOTIFIED. WILL LEAVE OUT AT THIS TIME. PT VERY CRITICAL AND HAS BEEN ON HEPARIN GTT. WILL CONTINUE TO MONITOR.
--- NOTE | 2016-05-18 10:47 | NUR ---
PATIENT REMAINS ON THE VENT. I HAVE NOT SEEN ANY FAMILY HERE TO INTERVIEW. APPARENTLY THEY LIVE OUT OF STATE AND ARE NO FAMILIAR WITH PATIENT'S PREVIOUS MD OR PHARAMCY.
--- NOTE | 2016-05-18 11:41 | NUR ---
SPOKE WITH PT'S DAUGHTER MESFIN ERWIN. DISCUSSED PT'S CONDITION AND SHE WOULD LIKE TO MAKE THE PATIENT COMFORTABLE. DISCUSSED WITH DR. BLACKMON. WILL NOTIFY DR. AVALOS FOR ORDERS.
--- NOTE | 2016-05-18 11:49 | NUR ---
SPOKE WITH DR. AVALOS REGARDING TERMINAL EXTUBATION. ORDERS RECEIVED.
--- NOTE | 2016-05-18 12:03 | NUR ---
ALL GTTS OFF PER MD ORDERS.
--- NOTE | 2016-05-18 12:13 | NUR ---
PT'S NEIGHBOR AT BEDSIDE. ASKING FOR LAST RIGHTS TO BE READY. NOTIFIED THE [employer]. THEY WILL BEGIN PAGING OUT PRIESTS AT THIS TIME.
--- NOTE | 2016-05-18 12:25 | NUR ---
[employer] DEVELOPER AT BEDSIDE FOR LAST RIGHTS.
--- NOTE | 2016-05-18 12:49 | NUR ---
PT ASYSTOLE ON MONITOR. DR. BLACKMON NOTIFIED.
--- NOTE | 2016-05-18 13:00 | NUR ---
NOTIFIED PT'S DAUGHTER OF HIS . DISCUSSED HOME OPTIONS AND SHE CHOSE [facility].
--- NOTE | 2016-05-18 14:38 | NUR ---
PT TAKEN BY STRETCHER WITH [facility].
--- NOTE | 2016-05-21 14:16 | DS ---
PATIENT:DELMA HODGSON :60 MEDICAL RECORD: [id number] DISCHARGE SUMMARY ADMISSION DATE: 05/09/16 DISCHARGE DATE: 05/18/16 DISCHARGE DIAGNOSES: 1. Cardiopulmonary arrest. 2. Myocardial infarction. 3. PTCA stent. 4. Chronic obstructive pulmonary disease end-stage. 5. Pneumonia. 6. Alcoholism. 7. Anemia. 8. Renal insufficiency. HOSPITAL COURSE: Mr. Hodgson presented with chest pain, shortness of breath for non-Q-wave myocardial infarction, underwent PTCA stent. He had a severe cardiomyopathy, ejection fraction 20%. He as well had COPD, end-stage, along with pneumonia. He had respiratory arrest requiring intubation. After this, he then went through what appears to be DTs from his alcohol withdrawal. He never progressed after this. From a respiratory standpoint, despite aggressive pulmonary care and antibiotics, he was never able to be weaned from the vent. He initially had a balloon pump from his first severe cardiomyopathy, after that this was removed. Due to an impending lower extremity ischemia, he then was on pressors. He has never gone off pressors and neurologically, he was unresponsive. He continued in a downhill path. The family decided for terminal extubation and terminal weaning with no drips. He soon after this. TRANSINT:[id number] Voice Confirmation ID: [id number] DOCUMENT ID: [id number] KWAN AVALOS MD at 1416 CC: [id number] DICTATION DATE: 05/18/16 1513 STUDIO CONTROL OPERATOR: 05/19/16 0441 DIS IN 05/18/16 [place] [id number] [place] [address]
--- NOTE | 2016-05-23 09:21 | NUR ---
Per CMS protocol, restraint report logged into data base.
== END 2016-05-18 14:38 | DRG 270 ==
LOC: D.ER 07:44 → D.ICU 10:40
PROVIDERS: Emergency Medicine; Internal Medicine Pulmonary Disease; Student in an Organized Health Care Education/Training Program; ADMIT Internal Medicine Interventional Cardiology
PROC: 5A02210 Assistance with Cardiac Output using Balloon Pump, Continuous (ICD-10-PCS; principal; 2016-05-09)
PROC: 02713EZ Dilation of Coronary Artery, Two Arteries with Two Intraluminal Devices, Percutaneous Approach (ICD-10-PCS; 2016-05-09)
PROC: 4A023N7 Measurement of Cardiac Sampling and Pressure, Left Heart, Percutaneous Approach (ICD-10-PCS; 2016-05-09)
PROC: B211YZZ Fluoroscopy of Multiple Coronary Arteries using Other Contrast (ICD-10-PCS; 2016-05-09)
PROC: B215YZZ Fluoroscopy of Left Heart using Other Contrast (ICD-10-PCS; 2016-05-09)
PROC: 0BH17EZ Insertion of Endotracheal Airway into Trachea, Via Natural or Artificial Opening (ICD-10-PCS; 2016-05-10)
PROC: 5A1955Z Respiratory Ventilation, Greater than 96 Consecutive Hours (ICD-10-PCS; 2016-05-10)
PROC: 02HV33Z Insertion of Infusion Device into Superior Vena Cava, Percutaneous Approach (ICD-10-PCS; 2016-05-14)
DX: I21.4 Non-ST elevation (NSTEMI) myocardial infarction (principal); J96.01 Acute respiratory failure with hypoxia; J69.0 Pneumonitis due to inhalation of food and vomit; R65.21 Severe sepsis with septic shock; F10.188 Alcohol abuse with other alcohol-induced disorder; J44.0 Chronic obstructive pulmonary disease with (acute) lower respiratory infection; J44.1 Chronic obstructive pulmonary disease with (acute) exacerbation; E46 Unspecified protein-calorie malnutrition; E72.20 Disorder of urea cycle metabolism, unspecified; J98.11 Atelectasis; J90 Pleural effusion, not elsewhere classified; D62 Acute posthemorrhagic anemia; R57.0 Cardiogenic shock; I25.10 Atherosclerotic heart disease of native coronary artery without angina pectoris; R94.5 Abnormal results of liver function studies; E87.6 Hypokalemia; D69.6 Thrombocytopenia, unspecified; I27.2 Other secondary pulmonary hypertension; Z68.21 Body mass index [BMI] 21.0-21.9, adult